=== PATIENT | male | born 1960 | race Caucasian/White ===

== ENCOUNTER → 2016-07-10 | Outpatient (CLI) | payer OTHER ==
[~2016-07-10] MED LIST: ADVIN50/60 INH; CLC100 PO; DOCU-94 PO; LISI-789 PO; NRN300 PO; OXYC-57 PO; SIMV40TA2 PO; SPRIN/30 INH; VNTHFA/IN INH
[2016-07-10 15:37] LABS: BASO % 0.3 %; BASO ABS # 0.02 K/uL (0-0.2); COMPLETE YES; EOS % 1.6 %; HEMATOCRIT 43.9 % (42-52); IG% 0.1 %; LYMPH ABS # 2.02 K/uL (1.2-3.4); MEAN CELL VOLUME 88.3 fL (80-100); MEAN CORPUSCULAR HEMOGLOBIN 30.8 pg (25-34); MEAN CORPUSCULAR HGB CONC 34.9 g/dl (32-36); MEAN PLATELET VOLUME 9.8 fL (7.4-10.4); MONO % 11.8 %; NEUT % 57.2 %; PLATELET COUNT 227 K/uL (130-400); RED BLOOD COUNT 4.97 M/uL (4.7-6.1); WHITE BLOOD COUNT 6.97 K/uL (4.8-10.8)
[2016-07-10 16:08] LABS: BLOOD UREA NITROGEN 13 mg/dl (7-18); BUN/CREATININE RATIO 10.4 (10-20); CALCIUM 8.8 mg/dl (8.5-10.1); CARBON DIOXIDE 27 mmol/L (21-32); CHLORIDE 104 mmol/L (98-107); GLUCOSE 87 mg/dl (70-99); POTASSIUM 3.9 mmol/L (3.5-5.1); SODIUM 140 mmol/L (136-145)
== END | disposition home or self-care (01) ==
LOC: C.LAB 14:22
PROVIDERS: ATTEND Surgery
DX: R91.1 Solitary pulmonary nodule (principal); C34.90 Malignant neoplasm of unspecified part of unspecified bronchus or lung

== ENCOUNTER 2016-07-18 09:30 | Inpatient (IN) | payer OTHER ==
[2016-07-17 08:43] VITALS: BMI 24.0
[2016-07-18] VITALS (11 sets, daily range): BP systolic 96–125; BP diastolic 59–79; PULSE 57–84; TEMP 35.5–36.7; O2SAT 95–100; Ht 175.3 cm; Wt 76.4 kg
[~2016-07-18] VITALS: Ht 175.3 cm; Wt 76.4 kg
[~2016-07-18 09:30] MED LIST changes: -CLC100 PO; -DOCU-94 PO; +FENTANYL CITRATE INJ 50 MCG/1 ML 2 ML VIAL ONE; +LACTATED RINGER'S 1000ML 1,000 ML IV SCH; +LIDOCAINE HCL 2% 2 ML VIAL (20MG/ML) ONE; +MIDAZOLAM HCL 1 MG/ML 2ML VIAL ONE; -NRN300 PO; +ONDANSETRON INJ 2 MG/ML 2 ML VIAL ONE; -OXYC-57 PO; +PROPOFOL IV EMULSION 10 MG/ML 20 ML VIAL IV ONE; +ROCURONIUM BROMIDE 10 MG/ML 5 ML VIAL ONE
--- NOTE | 2016-07-18 10:58 | History & Physical Bridge Note ---
H&P Re-Evaluation Bridge Note: I have examined the patient, reviewed the History & Physical and in the interval since the performance of the History & Physical I have noted the following changes of clinical significance: No changes noted
[2016-07-18] MEDS ORDERED: BUPIVACAINE LIPOSOME 1/3% 266 MG/20 ML VIAL INFIL ONE (11:28)
[2016-07-18] MEDS ORDERED: FENTANYL CITRATE INJ 50 MCG/1 ML 2 ML VIAL ONE (12:26)
[2016-07-18] MEDS ORDERED: MIX: 266 MG EXPAREL + 40 ML INJ SALINE INJ ONE (12:41)
[2016-07-18] MEDS ORDERED: GLYCOPYRROLATE INJ 0.2 MG/ML VIAL ONE (12:44)
[2016-07-18] MEDS ORDERED: DEXAMETHASONE SOD INJ 4 MG/ML VIAL ONE (12:44)
[2016-07-18] MEDS ORDERED: NEOSTIGMINE METHYLSULFATE 5 MG/5 ML SYR ONE (12:44)
[2016-07-18] MEDS ORDERED: ROCURONIUM BROMIDE 10 MG/ML 5 ML VIAL ONE (12:59)
[2016-07-18] MEDS ORDERED: PROPOFOL IV EMULSION 10 MG/ML 20 ML VIAL IV ONE (12:59)
[2016-07-18] MEDS ORDERED: EpHEDrine SULFATE INJ 50 MG/ML AMP IV PRN (13:15)
[2016-07-18] MEDS ORDERED: ONDANSETRON INJ 2 MG/ML 2 ML VIAL IV PRN (13:15)
[2016-07-18] MEDS ORDERED: ATROPINE SULFATE 0.1 MG/ML 5ML SYR IV PRN (13:15)
[2016-07-18] MEDS ORDERED: ALBUTEROL HFA 8 GM INHALER INH PRN (15:00)
[2016-07-18] MEDS ORDERED: MIDAZOLAM HCL 1 MG/ML 2ML VIAL ONE (15:08)
[2016-07-18] MEDS ORDERED: NURSING VERBAL MED ORDER ONE ×2 (15:15)
--- NOTE | 2016-07-18 15:21 | DIAGNOSTIC IMAGING REPORT ---
CHEST ONE VIEW PORTABLE CLINICAL HISTORY: Postop left upper lobectomy COMPARISON STUDY: Outside CT scan dated 06/27/2016 FINDINGS: Postsurgical changes are present on the left. There is a left-sided chest tube present. There is mild left-sided volume loss. There is no evidence of pneumothorax. There is a small amount of subcutaneous tissues emphysema on the left. There is mild right lung interstitial prominence. There is no lobar consolidation on the right. IMPRESSION: Postsurgical changes on the left. No evidence of pneumothorax. Electronically signed by: Yosvany Pedroza M.D. 07/18/2016 3:19 PM Dictated Date/Time: 07/18/2016 3:18 PM
[2016-07-18] MEDS: FENTANYL CITRATE INJ 50 MCG/1 ML 2 ML VIAL IV PRN ×2 (15:35→15:40)
[2016-07-18 15:41] LABS: CREATININE 1.1 mg/dl (0.60-1.40)
--- NOTE | 2016-07-18 15:53 | OPERATIVE REPORT ---
DATE OF OPERATION: 07/18/2016 PREOPERATIVE DIAGNOSIS: Hypermetabolic mass, left upper lobe. POSTOPERATIVE DIAGNOSIS: Nonsmall cell lung carcinoma, left upper lobe. PROCEDURE: 1. Left thoracoscopy with wedge resection. 2. Thoracoscopic left upper lobectomy. 3. Mediastinal lymphadenectomy. SURGEON: Dr. Pacheco. STUDENT SUPPORT ADVISOR: Cliff Crabtree PA-C. ANESTHESIA: General anesthesia with endotracheal intubation with double lumen tube. SPECIFICS OF THE PROCEDURE: Tip Gordon is a very nice 56-year-old male who is a patient of Dr. Rigo Cox from [facility] who referred the patient to me with a small mass which was hypermetabolic in his left upper lobe near the fissure. I thought we would be able to identify this without too much difficulty and as the rest of his studies showed him to be an operative candidate brought him to the operating room on 07/18/2016. He had a left thoracoscopy and I easily found the mass and wedged it out with Endo-AMADA staplers. I then dissected out this hilum and dissected out some lymph nodes while waiting for the frozen section. This came back as positive, we went ahead and finished the lobectomy. I also did a lymphadenectomy. He tolerated the procedure quite well. He was awakened and extubated in the room. OPERATION AND FINDINGS: PROCEDURE: The patient brought to the operating room and laid in supine position. General anesthesia was induced and endotracheal intubation was performed. The patient was placed in right lateral decubitus position, his left chest prepped, draped in usual sterile fashion. After appropriate timeout had been given and antibiotics administered a small incision was made just 1 interspace below the tip of the scapula and a few centimeters anterior. This was initially with a 5 mm Veress needle after CO2 had been infused. I then inserted a 5 mm trocar with a 5 mm scope and could see that there were no adhesions. We had nearly complete fissures. I then placed another 10 mm port anteriorly at about the seventh interspace and then more superiorly about the fourth interspace. I converted the 5 mm port to a 10 mm port for our scope. I was able to grasp this mass, I was able to identify and palpate. It was confined to the left upper lobe. Using Endo-AMADA stapler I fired across with several of these and delivered this off the field to an Endobag. Frozen section was then requested. While waiting for this I freed up the inferior pulmonary ligament and delivered off the levels 8 and level 9 nodes and then identified the inferior pulmonary vein. I then divided the pleura lateral to the phrenic nerve. Care taken to avoid injury to this nerve. I easily the superior pulmonary vein from the inferior pulmonary vein and then the superior pulmonary vein from the artery and the bronchus. Frozen section came back as a non-small cell lung carcinoma. It appeared to be an adenocarcinoma. I then placed a vessel loop around the superior pulmonary vein and retracting upward fried an Endo-AMADA stapler. I then dissected out the artery superiorly and took the first branch with an Endo-AMADA stapler and then this more. I then went into the fissure which was almost complete and divided this with an Endo-AMADA stapler anteriorly and used the Harmonic scalpel more posteriorly so I completed almost the entire fissure. I was then able to go around the bronchus without too much difficulty and placed an Endo-AMADA stapler across this and fired it. By pulling up it could be seen that there were 3 more branches including the lingular branch and fired Endo-AMADA stapler across all of these and placed this in an Endobag and removed this from the superior incision. It should be noted that I used CO2 insufflation to begin and to dissect out the pleura; however, when the diagnosis came back, I converted this to a regular thoracoscopy without CO2 insufflation and enlarged the fourth interspace incision to about 4 cm. I then used 266 mg of Exparel mixed in 60 mL total fluid and did an endothoracic block from the 2nd rib to the 11th rib. These intercostal blocks were done without difficulty without bleeding. Then attention was then turned towards the lymph nodes. As stated I dissected out level 8 and 9, also dissected out level 5, 6, 10 and 11 and 12. I dissected out the bronchus; however got into some bleeding and I elected not to go after the subcarinal node as this was not hypermetabolic on the PET and it was difficult to get to. Bronchial margins came back negative on frozen. A 24-Croatian chest tube was placed in the anterior incision and directed towards the apex, sutured in place with heavy silk suture. 0 Vicryl was used to reapproximate the muscle layers of all the incisions and then 3-0 antimicrobial impregnated Vicryl was used in a running subcuticular fashion to approximate the wound edges. He tolerated it well and was extubated in the room. Blood loss was negligible. I attest to the content of the Intraoperative Record and any orders documented therein. Any exceptio ns are noted below.
[2016-07-18] MEDS ORDERED: ALBUT/IPRATROP 3MG/0.5MG NEB 3 ML VIAL INH ONE (16:00)
--- NOTE | 2016-07-18 16:26 | Anesthesiology Progress Note ---
Anesthesia Post Op Note Date & Time Jul 18, 2016 at 16:23 Vital Signs Pain Intensity: 2 Vital Signs Past 12 Hours Date Time Temp Pulse Resp B/P Pulse Ox O2 Delivery O2 Flow Rate FiO2 07/18/16 16:10 36.3 74 16 104/62 98 Nasal Cannula 3 07/18/16 16:00 36.3 77 16 106/58 100 Nasal Cannula 3 07/18/16 15:50 73 16 115/73 100 Mask 10 07/18/16 15:40 71 22 127/73 100 Mask 10 07/18/16 15:30 69 22 110/64 100 Mask 10 07/18/16 15:20 77 22 99/74 98 Mask 10 07/18/16 15:10 70 22 111/76 100 Mask 10 07/18/16 15:06 36.0 78 20 104/66 100 Mask 10 07/18/16 09:52 36.4 68 18 125/79 95 Room Air Notes Mental Status: alert / awake / arousable, participated in evaluation Pt Amnestic to Procedure: Yes Nausea / Vomiting: adequately controlled Pain: adequately controlled Airway Patency, RR, SpO2: stable & adequate BP & HR: stable & adequate Hydration State: stable & adequate Anesthetic Complications: no major complications apparent patient complained of some chest pain and dyspnea on arrival to [facility]. did not appear to be cardiac in nature and the patient had scattered expiratory weezing. Nevertheless a 12 lead ecg was ordered along with papa. His weezing improved and he was holding excellent saturation on nasal cannula. His chest pain also impoved with treatment and aside from PVCs, his ECG was unchanged from preop. At this time he seems stable for a monitored bed on the floor.
[2016-07-18] MEDS: MoRPHine SULFATE 2 MG/ML CARP IV PRN ×3 (17:00→20:02)
[2016-07-18] MEDS: CEFAZOLIN IV 2,000 MG in DEXTROSE 5% 50ML 100 ML IV SCH (18:00)
[2016-07-18] MEDS: D5W AND 1/2NSS 1,000 ML IV SCH (18:01)
[2016-07-18] MEDS ORDERED: PNEUMOCOCCAL POLYSACCHARIDES 25 MCG/0.5 ML VIAL/SYR IM. ONE (20:30)
[2016-07-18] MEDS ORDERED: PNEUMOCOCCAL ADMINISTRATION CHARGE ONE (20:30)
[2016-07-18] MEDS: SIMVASTATIN 40 MG TAB PO SCH (21:01)
[2016-07-18] MEDS: DOCUSATE SODIUM 100 MG CAP PO SCH (21:01)
[2016-07-18] MEDS: METOCLOPRAMIDE HCL INJ 5 MG/ML 2 ML VIAL IV. SCH (21:54)
[2016-07-18] MEDS: KETOROLAC TROMETHAMINE 15 MG/ML VIAL IV. SCH (21:55)
[2016-07-18] MEDS: ACETAMINOPHEN IV 1,000 MG in EMPTY BAG 0 ML IV SCH (21:56)
[2016-07-19] VITALS (11 sets, daily range): BP systolic 103–128; BP diastolic 64–79; PULSE 70–96; TEMP 36.3–37.1; O2SAT 91–98
[2016-07-19] MEDS: CEFAZOLIN IV 2,000 MG in DEXTROSE 5% 50ML 100 ML IV SCH (02:15)
[2016-07-19] MEDS: D5W AND 1/2NSS 1,000 ML IV SCH (03:50)
[2016-07-19] MEDS: METOCLOPRAMIDE HCL INJ 5 MG/ML 2 ML VIAL IV. SCH ×2 (05:56→13:15)
[2016-07-19] MEDS: ACETAMINOPHEN IV 1,000 MG in EMPTY BAG 0 ML IV SCH ×3 (05:56→22:07)
[2016-07-19] MEDS: KETOROLAC TROMETHAMINE 15 MG/ML VIAL IV. SCH ×3 (05:56→22:07)
[2016-07-19 06:43] LABS: BASO % 0.1 %; BASO ABS # 0.01 K/uL (0-0.2); COMPLETE YES; EOS % 0.2 %; HEMATOCRIT 38.4 % (42-52); IG% 0.2 %; LYMPH % 17.3 %; MEAN CELL VOLUME 87.3 fL (80-100); MEAN CORPUSCULAR HEMOGLOBIN 30.5 pg (25-34); MEAN CORPUSCULAR HGB CONC 34.9 g/dl (32-36); MEAN PLATELET VOLUME 9.4 fL (7.4-10.4); MONO % 11.7 %; NEUT % 70.5 %; PLATELET COUNT 174 K/uL (130-400); WHITE BLOOD COUNT 10.43 K/uL (4.8-10.8)
[2016-07-19 07:14] LABS: BUN/CREATININE RATIO 14.5 (10-20); CALCIUM 7.9 mg/dl (8.5-10.1); CREATININE 1.1 mg/dl (0.60-1.40); POTASSIUM 3.6 mmol/L (3.5-5.1)
[2016-07-19] MEDS: TIOTROPIUM BROMIDE 5 PUFF/90 MCG INH INH SCH (08:06)
[2016-07-19] MEDS: FLUTICASONE/SALMETEROL (ADVAIR) 500/50 INH 14 PUFF INH SCH (08:07)
[2016-07-19] MEDS: LISINOPRIL 2.5 MG TAB PO SCH (08:07)
--- NOTE | 2016-07-19 08:07 | DIAGNOSTIC IMAGING REPORT ---
CHEST ONE VIEW PORTABLE CLINICAL HISTORY: Status post left upper lobectomy COMPARISON STUDY: Chest radiograph July 18, 2016. FINDINGS: A left chest tube is in place. Extensive gas within the left chest wall and lower neck has increased. Note is made of a moderate left apical pneumothorax. This was not evident on prior exam. There is mild interstitial thickening with the left lung and mild left basilar opacity. Cardiac size is normal. IMPRESSION: Interval development of a moderate left apical pneumothorax with left chest tube in place. Increase in subcutaneous gas within left chest wall and lower neck. Electronically signed by: Ismael Castillo M.D. 07/19/2016 8:05 AM Dictated Date/Time: 07/19/2016 8:02 AM
[2016-07-19] MEDS: DOCUSATE SODIUM 100 MG CAP PO SCH ×2 (08:08→21:14)
[2016-07-19] MEDS: ENOXAPARIN 40 MG/0.4 ML SYR SQ SCH (08:11)
--- NOTE | 2016-07-19 08:11 | Anesthesiology Progress Note ---
Anesthesia Post Op Note Date & Time Jul 19, 2016 at 08:09 Vital Signs Pain Intensity: 5.0 Vital Signs Past 12 Hours Date Time Temp Pulse Resp B/P Pulse Ox O2 Delivery O2 Flow Rate FiO2 07/19/16 07:43 36.3 70 20 103/64 98 Room Air 07/19/16 07:32 94 Room Air 2.0 07/19/16 06:12 96 93 Room Air 07/19/16 03:45 36.5 73 18 110/69 97 Nasal Cannula 2.0 07/19/16 01:00 96 Nasal Cannula 2.0 07/18/16 22:45 36.7 84 18 96/59 96 Nasal Cannula 2.0 07/18/16 22:01 97 Nasal Cannula 2.0 Notes Mental Status: alert / awake / arousable, participated in evaluation Pt Amnestic to Procedure: Yes Nausea / Vomiting: adequately controlled Pain: adequately controlled Airway Patency, RR, SpO2: stable & adequate BP & HR: stable & adequate Hydration State: stable & adequate Anesthetic Complications: no major complications apparent
[2016-07-19] MEDS: MoRPHine SULFATE 2 MG/ML CARP IV PRN ×2 (13:12→22:08)
--- NOTE | 2016-07-19 14:11 | DIAGNOSTIC IMAGING REPORT ---
CHEST ONE VIEW PORTABLE CLINICAL HISTORY: Increased shortness of breath. Chest pain. COMPARISON STUDY: Chest radiograph July 19, 2016 at 7:11 AM. FINDINGS: A left chest tube remains in place. There is gas within left chest wall and lower neck. A moderate left apical pneumothorax is similar to prior exam. Mild left lower lung opacity persists. IMPRESSION: 1. Moderate-sized left pneumothorax, similar in size to prior exam. Left chest tube in place. 2. No significant change in gas within the left chest wall and left lower neck. 3. Persistent hazy left lower lung opacity which is unchanged. Electronically signed by: Ismael Castillo M.D. 07/19/2016 2:09 PM Dictated Date/Time: 07/19/2016 2:07 PM
--- NOTE | 2016-07-19 19:08 | SURGERY PROGRESS NOTE ---
DATE: 07/19/2016 Mr. Gordon is complaining of pain in his left chest as expected. However, he has done very well on room air. Saturations are in the mid-90s. He has been ambulating in the hallway. He is voiding well. He did have trouble with urinary retention last night, but that has resolved. He drained some serous fluid. He has a pneumothorax on the left. He really has an intermittent air leak and my feeling is the left chest tube is not working as well as it should, although I think his pneumothorax is better and we will check a film in the morning on suction. I do not see the need to change the tube currently. He really did not have much of an air leak at the time of the closure of his chest in the OR. At any rate, I think he looks quite good. We will check a chest x-ray in the morning. SEVERO
[2016-07-19] MEDS: SIMVASTATIN 40 MG TAB PO SCH (21:14)
[2016-07-20] VITALS (7 sets, daily range): BP systolic 117–135; BP diastolic 75–87; PULSE 72–93; TEMP 36.5–36.8; O2SAT 90–94
[2016-07-20] MEDS: KETOROLAC TROMETHAMINE 15 MG/ML VIAL IV. SCH ×2 (06:27→14:40)
[2016-07-20] MEDS: ACETAMINOPHEN IV 1,000 MG in EMPTY BAG 0 ML IV SCH ×3 (06:27→22:00)
--- NOTE | 2016-07-20 07:22 | DIAGNOSTIC IMAGING REPORT ---
CHEST ONE VIEW PORTABLE HISTORY: s/p lung resection COMPARISON: Chest 07/19/2016. FINDINGS: Moderate left pneumothorax is unchanged in size. This demonstrates a maximal pleural gap of 5.4 cm. Left-sided chest tube remains unchanged in position. Left hilar density and interstitial thickening within the residual left lung is stable. The heart is normal in size. There is left chest wall subcutaneous emphysema which is also unchanged. No midline shift. IMPRESSION: Overall, no significant change compared to the prior study. The left chest tube is in place with a moderate size left pneumothorax persists. Electronically signed by: Jeff Adams M.D. 07/20/2016 7:20 AM Dictated Date/Time: 07/20/2016 7:18 AM
[2016-07-20] MEDS: MoRPHine SULFATE 2 MG/ML CARP IV PRN ×3 (07:36→15:59)
[2016-07-20] MEDS: FLUTICASONE/SALMETEROL (ADVAIR) 500/50 INH 14 PUFF INH SCH (09:04)
[2016-07-20] MEDS: DOCUSATE SODIUM 100 MG CAP PO SCH ×2 (09:05→20:34)
[2016-07-20] MEDS: TIOTROPIUM BROMIDE 5 PUFF/90 MCG INH INH SCH (09:05)
[2016-07-20] MEDS: LISINOPRIL 2.5 MG TAB PO SCH (09:08)
[2016-07-20] MEDS: ENOXAPARIN 40 MG/0.4 ML SYR SQ SCH (09:09)
--- NOTE | 2016-07-20 09:50 | DIAGNOSTIC IMAGING REPORT ---
CHEST ONE VIEW PORTABLE CLINICAL HISTORY: Pneumothorax. COMPARISON STUDY: Chest radiograph July 20, 2016 7:12 AM FINDINGS: Gas within the left chest wall AND left neck is noted. A left chest tube is in place. A moderate to large left apical pneumothorax has mildly increased in size since prior exam. Pleural separation is now 6.7 cm. It previously measured 5.4 cm. IMPRESSION: Mild increase in size of a moderate to large left apical pneumothorax. Left chest tube in place Electronically signed by: Ismael Castillo M.D. 07/20/2016 9:48 AM Dictated Date/Time: 07/20/2016 9:44 AM
[2016-07-20] MEDS ORDERED: NURSING VERBAL MED ORDER ONE ×2 (13:15→14:00)
[2016-07-20] MEDS ORDERED: ALUMINUM/MAGNESIUM SUSP 30 ML UDC ONE (13:15)
[2016-07-20] MEDS ORDERED: LIDOCAINE HCL 1% 20 ML VIAL ONE (13:57)
--- NOTE | 2016-07-20 14:48 | DIAGNOSTIC IMAGING REPORT ---
CHEST ONE VIEW PORTABLE CLINICAL HISTORY: pneumothorax COMPARISON STUDY: 07/20/2016 FINDINGS: The heart is mildly enlarged. There is subcutaneous emphysema on the left. There is been interval insertion of a second left-sided chest tube. A left apical pneumothorax is suspected although it is difficult to visualize the actual pleural edge. There is also an abnormal lucency at the left medial lung base, suspicious for a basilar component of the pneumothorax Increased markings the left lung base are likely atelectatic.[ IMPRESSION: Interval insertion of a second left-sided chest tube. There is a lucency at the left apex as well as at the left medial lung base. A residual pneumothorax is suspected although a discrete pleural edge is difficult to visualize. Electronically signed by: Yosvany Pedroza M.D. 07/20/2016 2:46 PM Dictated Date/Time: 07/20/2016 2:43 PM
--- NOTE | 2016-07-20 14:49 | DIAGNOSTIC IMAGING REPORT ---
CHEST ONE VIEW PORTABLE HISTORY: chest tube adjustment COMPARISON: Chest 07/20/2016. FINDINGS: There are 2 left-sided chest tubes. The basilar chest tube is unchanged in position. The left upper chest tube has been pulled back with the tip terminating at the left lung apex. Small left apical pneumothorax with a pleural gap of 12 mm. Left chest wall subcutaneous emphysema persists. There is left basilar interstitial thickening. Moderate to severe emphysema. The heart is stable in size. The right lung remains clear. IMPRESSION: 1. The upper left chest tube has been pulled back with the tip residing within the left lung apex. The left lower chest tube remains unchanged in position. 2. Small left apical pneumothorax. Electronically signed by: Jeff Adams M.D. 07/20/2016 2:48 PM Dictated Date/Time: 07/20/2016 2:45 PM
--- NOTE | 2016-07-20 14:50 | SURGERY PROGRESS NOTE ---
DATE: 07/20/2016 DATE: 07/20/2016. Mr. Gordon is 48 hours status post thorascopic left upper lobectomy for an apparent early stage nonsmall cell lung carcinoma. I am surprised to see that he had a pneumothorax. He really did not have much of an air leak in the surgery. I think there is a problem with his chest tube. I pulled it back today several centimeters. His pneumothorax is even worse. It is interesting that the patient only has an intermittent air leak. For this reason, I elected to put another chest tube in place. I am going to insert a 16-Mohawk anterior chest tube. I have discussed this with the patient and he is in agreement. Our pathology report is still pending.
--- NOTE | 2016-07-20 15:37 | OPERATIVE REPORT ---
DATE OF OPERATION: 07/20/2016 PROCEDURE NOTE PROCEDURE: Insertion of left anterior 16-Tajik chest tube. SURGEON: Dr. Pacheco. VOCATIONAL NURSING INSTRUCTOR: Cliff Crabtree PA-C. ANESTHESIA: Local. SPECIFICS OF PROCEDURE: With the patient at about a 30 degree angle sitting up, his left chest was prepped and draped in the usual sterile fashion anteriorly. Using a 25 gauge needle 1% Xylocaine, I anesthetized the skin and subcutaneous tissues. A longer needle was used to anesthetize the deeper subcutaneous tissues and muscle. A long needle was then used to go over the rib above and enter the pleural cavity without difficulty. I was anesthetizing the periosteum as I went over it as well as the pleura. We got free flowing air. A guidewire was inserted and needle removed. The insertion site was enlarged to about 6-8 mm and then an introducer was slid over the guidewire to enlarge the insertion site and removed. The 16-Tajik chest tube with a trocar was then inserted over the guidewire without difficulty to about 16 cm and the inner cannula and guidewire were removed. Two separate 3-0 silk sutures used to anchor this to the patient's skin. An air leak was not large, but it was much more consistent than his other chest tube. We will check another chest x-ray now. Sterile antimicrobial dressings were placed. He tolerated it well. I attest to the content of the Intraoperative Record and any orders documented therein. Any exceptions are noted below. SEVERO
[2016-07-20] MEDS: OXYCODONE/ACETAMINOPHEN 5-325 TAB PO PRN ×2 (17:23→20:38)
[2016-07-20] MEDS: SIMVASTATIN 40 MG TAB PO SCH (20:34)
[2016-07-20] MEDS: ALUMINUM/MAGNESIUM/SIMETH (MAALOX MAX) 30 ML UDC PO PRN (20:40)
[2016-07-21] VITALS (7 sets, daily range): BP systolic 110–122; BP diastolic 70–78; PULSE 68–84; TEMP 36.6–36.8; O2SAT 92–94
[2016-07-21] MEDS: OXYCODONE/ACETAMINOPHEN 5-325 TAB PO PRN ×4 (01:06→23:47)
[2016-07-21] MEDS: ACETAMINOPHEN IV 1,000 MG in EMPTY BAG 0 ML IV SCH (05:31)
[2016-07-21] MEDS ORDERED: NURSING VERBAL MED ORDER ONE (07:30)
--- NOTE | 2016-07-21 07:57 | DIAGNOSTIC IMAGING REPORT ---
CHEST ONE VIEW PORTABLE CLINICAL HISTORY: pneumothorax COMPARISON STUDY: 07/20/2016 FINDINGS: Postsurgical changes are present on the left. There is left-sided volume loss. There are 2 left-sided chest tubes. There is a left apical pneumothorax the pleural separation of 23 mm. There is left-sided subcutaneous emphysema. There are minor left basilar atelectatic changes. The right lung appears generally clear.[ IMPRESSION: Slight increase in the size of the left apical pneumothorax which has a pleural separation of 23 mm. Electronically signed by: Yosvany Pedroza M.D. 07/21/2016 7:55 AM Dictated Date/Time: 07/21/2016 7:54 AM
[2016-07-21] MEDS: MoRPHine SULFATE 2 MG/ML CARP IV PRN (08:14)
[2016-07-21] MEDS: ALUMINUM/MAGNESIUM/SIMETH (MAALOX MAX) 30 ML UDC PO PRN (08:41)
[2016-07-21] MEDS: FLUTICASONE/SALMETEROL (ADVAIR) 500/50 INH 14 PUFF INH SCH (08:42)
[2016-07-21] MEDS: LISINOPRIL 2.5 MG TAB PO SCH (08:43)
[2016-07-21] MEDS: DOCUSATE SODIUM 100 MG CAP PO SCH ×2 (08:43→20:51)
[2016-07-21] MEDS: TIOTROPIUM BROMIDE 5 PUFF/90 MCG INH INH SCH (08:45)
[2016-07-21] MEDS: ENOXAPARIN 40 MG/0.4 ML SYR SQ SCH (08:47)
--- NOTE | 2016-07-21 10:24 | SURGERY PROGRESS NOTE ---
DATE: 07/21/2016 DATE: 07/21/2016. Mr. Gordon was seen today postop day 3 status post thoracoscopic left upper lobectomy for nonsmall cell lung carcinoma. I removed the inferior chest tube. I think his x-ray looks better despite the radiology interpretation. He does have a small air leak and has gotten smaller since last night. I attached the Heimlich valve to him and he was draining very little fluid. I have instructed him how important it is for him to ambulate and to use his spirometer. He is on room air. He is eating well. Overall, I have been happy with his progress. I feel he is stable from a surgery standpoint, I believe that we will be able to get him out of the hospital soon. I prefer not to send him home with a chest tube; however, that is an option with the Heimlich valve in place. SEVERO
[2016-07-21] MEDS: ONDANSETRON INJ 2 MG/ML 2 ML VIAL IV PRN (12:58)
[2016-07-21] MEDS: SIMVASTATIN 40 MG TAB PO SCH (20:51)
[2016-07-22] MEDS: OXYCODONE/ACETAMINOPHEN 5-325 TAB PO PRN ×4 (03:25→23:58)
[2016-07-22 06:50] VITALS: BP 103/70; PULSE 71; TEMP 36.6; O2SAT 94
[2016-07-22] MEDS: TIOTROPIUM BROMIDE 5 PUFF/90 MCG INH INH SCH (08:40)
[2016-07-22] MEDS: FLUTICASONE/SALMETEROL (ADVAIR) 500/50 INH 14 PUFF INH SCH (08:40)
[2016-07-22] MEDS: DOCUSATE SODIUM 100 MG CAP PO SCH ×2 (08:41→20:33)
[2016-07-22] MEDS: ENOXAPARIN 40 MG/0.4 ML SYR SQ SCH (08:41)
[2016-07-22] MEDS: LISINOPRIL 2.5 MG TAB PO SCH (08:41)
--- NOTE | 2016-07-22 08:51 | SURGERY PROGRESS NOTE ---
DATE: 07/22/2016 Mr. Gordon was seen today on 07/22/2016. He is now 4 days status post a thoracoscopic left upper lobectomy. He had some increasing subcutaneous emphysema. He still has a persistent left apical pneumothorax; however, the chest tube is working, he does have an air leak. It is small. I believe that some the pneumothorax is caused by incomplete expansion of the lung. At any rate, I have discussed this case with Dr. Johnson, who will cover the patient today. I have also asked Dr. Varner to cover him going forward. I will be out of town until Saturday. I have explained this to the patient. Otherwise, the patient is doing well. I am going to give him MiraLax today. I want him to continue ambulating in the hallway. He is eating well. He is complaining of pain, but this is controlled with his oral narcotics.
--- NOTE | 2016-07-22 09:46 | DIAGNOSTIC IMAGING REPORT ---
SINGLE VIEW CHEST CLINICAL HISTORY: Lobectomy. Pneumothorax. FINDINGS: An AP, portable, upright chest radiograph is compared to study dated 07/21/2016. Correlation is made with chest CT dated 06/27/2016. The examination is degraded by portable technique and patient rotation. The cardiomediastinal silhouette is unremarkable. Emphysema and chronic interstitial thickening are similar to previous. There are postoperative changes from left upper lobe pulmonary resection. A left atypical chest tube is unchanged in position. A small left apical pneumothorax has modestly increased in size from yesterday. There is approximately 5 cm of apical pleural separation. Trace pleural fluid is suspected at the left lung base. The right lung appears clear. The skeletal structures are osteopenic. The bony thorax is grossly intact. Simultaneous emphysema along the left chest wall and in the left lower neck is increased from yesterday. IMPRESSION: 1. A left apical chest tube is unchanged in position. A left apical pneumothorax has modestly increased in size from yesterday. 2. Emphysema and postoperative changes from left upper lobe pulmonary resection. 3. The right lung is grossly clear. Electronically signed by: Venkat Warren M.D. 07/22/2016 9:44 AM Dictated Date/Time: 07/22/2016 9:42 AM
[2016-07-22] MEDS: ALUMINUM/MAGNESIUM/SIMETH (MAALOX MAX) 30 ML UDC PO PRN ×2 (14:12→21:34)
[2016-07-22] MEDS ORDERED: NURSING VERBAL MED ORDER ONE (14:30)
[2016-07-22] MEDS ORDERED: BISACODYL 5 MG TABEC PO PRN (15:00)
[2016-07-22 15:31] VITALS: BP 112/73; PULSE 83; TEMP 36.8; O2SAT 91
[2016-07-22 18:53] VITALS: PULSE 88; O2SAT 96
[2016-07-22] MEDS: SIMVASTATIN 40 MG TAB PO SCH (20:57)
[2016-07-22 23:10] VITALS: BP 105/74; PULSE 77; TEMP 36.5; O2SAT 91
[2016-07-23] MEDS: MoRPHine SULFATE 2 MG/ML CARP IV PRN ×2 (02:15→23:26)
[2016-07-23] MEDS: ONDANSETRON INJ 2 MG/ML 2 ML VIAL IV PRN (02:28)
[2016-07-23 07:04] VITALS: BP 109/71; PULSE 78; TEMP 36.8; O2SAT 93
[2016-07-23] MEDS: FLUTICASONE/SALMETEROL (ADVAIR) 500/50 INH 14 PUFF INH SCH (08:04)
[2016-07-23] MEDS: TIOTROPIUM BROMIDE 5 PUFF/90 MCG INH INH SCH (08:05)
[2016-07-23] MEDS: DOCUSATE SODIUM 100 MG CAP PO SCH ×2 (08:05→21:00)
[2016-07-23] MEDS: LISINOPRIL 2.5 MG TAB PO SCH (08:05)
[2016-07-23] MEDS: ENOXAPARIN 40 MG/0.4 ML SYR SQ SCH (08:06)
--- NOTE | 2016-07-23 08:20 | DIAGNOSTIC IMAGING REPORT ---
CHEST ONE VIEW PORTABLE CLINICAL HISTORY: Follow up pneumothorax. COMPARISON STUDY: Chest radiograph July 22, 2016. FINDINGS: A left apical chest tube remains in place. A small left apical pneumothorax has decreased in size. Superior pleural separation now measures 2.7 cm. Emphysema is noted. There is mild left lower lung opacity. Gas within the left chest wall and left neck is unchanged. There is no evidence of pulmonary edema. IMPRESSION: Significant interval decrease in the small left apical pneumothorax. Left apical chest tube remains in place. Electronically signed by: Ismael Castillo M.D. 07/23/2016 8:18 AM Dictated Date/Time: 07/23/2016 8:14 AM
--- NOTE | 2016-07-23 08:36 | SURGERY PROGRESS NOTE ---
DATE: 07/23/[address] Pacheco. SUBJECTIVE: Tip is status post postoperative day thorascopic left upper lobectomy with mediastinal lymphadenectomy. He has had a persistent pneumothorax. He was tried on a Heimlich valve a few days ago, but he had more increased subcutaneous emphysema. This morning Tip is resting quite comfortably. His temperature is 36.8, his pulse 78, respirations 16, blood pressure 109/71, O2 sats 93% on room air. I\T\O still slightly positive, but urine has not been measured in last 2 days. He is moving his bowels. Clinically, he has left subcutaneous emphysema, according to the patient this is pretty much unchanged in the chest wall. I asked him for a forced expiratory leak, he has minimal air leak. He is off suction, but on and off for 4 hours. I reinforced the junction between the chest tube and the pleurovac. At this time, we will get a chest x-ray and see and evaluate the status of pneumothorax. If it is stable and no further evidence of any expansion tomorrow, will probably be able to put a Heimlich valve on him and discharge him home. A decision will be made on a clinical basis following his chest x-ray. The path report at this time is still pending. SEVERO
[2016-07-23] MEDS: ALUMINUM/MAGNESIUM/SIMETH (MAALOX MAX) 30 ML UDC PO PRN ×3 (09:20→23:21)
[2016-07-23 11:22] VITALS: BP 104/71; PULSE 87; TEMP 36.8; O2SAT 91
[2016-07-23] MEDS: OXYCODONE/ACETAMINOPHEN 5-325 TAB PO PRN ×3 (12:19→21:00)
[2016-07-23 15:09] VITALS: BP 128/84; PULSE 80; TEMP 36.5; O2SAT 92
[2016-07-23 16:30] VITALS: O2SAT 92
[2016-07-23] MEDS: SIMVASTATIN 40 MG TAB PO SCH (21:01)
[2016-07-23 23:10] VITALS: BP 129/81; PULSE 71; TEMP 36.6; O2SAT 93
[2016-07-24] VITALS (9 sets, daily range): BP systolic 101–125; BP diastolic 66–80; PULSE 68–84; TEMP 36.4–37.2; O2SAT 92–98
[2016-07-24] MEDS: OXYCODONE/ACETAMINOPHEN 5-325 TAB PO PRN ×4 (03:20→20:24)
--- NOTE | 2016-07-24 07:07 | SURGERY PROGRESS NOTE ---
DATE: 07/24/2016 Tip is resting comfortably. The chest tube had been placed on 4 hours off and 4 hours on suction. When I walk in the chest tube is on suction now. There is no forced expiratory leak. I discontinued the suction and pretty much the same. The subcutaneous emphysema clinically has maintained the same status. At this point we will discontinue the suction completely, get a chest x-ray in about 3 hours to see how it evolves. If there is no significant change in the pneumothorax and no evidence of any extension of the emphysema then we may be able to put a Heimlich valve and send the patient home. The concern is that the chest tube which is in the left apical area with the extension of the subcutaneous emphysema has actually migrated almost to the subcutaneous space.
[2016-07-24] MEDS: LISINOPRIL 2.5 MG TAB PO SCH (08:27)
[2016-07-24] MEDS: FLUTICASONE/SALMETEROL (ADVAIR) 500/50 INH 14 PUFF INH SCH (08:28)
[2016-07-24] MEDS: DOCUSATE SODIUM 100 MG CAP PO SCH ×2 (08:28→20:25)
[2016-07-24] MEDS: ENOXAPARIN 40 MG/0.4 ML SYR SQ SCH (08:29)
[2016-07-24] MEDS: TIOTROPIUM BROMIDE 5 PUFF/90 MCG INH INH SCH (09:54)
--- NOTE | 2016-07-24 10:12 | SURGERY PROGRESS NOTE ---
DATE: 07/24/2016 I was called by the nurse approximately an hour after we had discontinued suction on the chest tube on Mr. Gordon. She was quite concerned that his left neck was getting more prominent with subcutaneous emphysema. The patient was not having any real issue. She was quite concerned. I was in the OR and I told her to put the chest tube back on suction. Of note, the chest tube had been only off suction for about an hour, and prior to that he was on a schedule by having a clamped every 4 hours. I went back and saw the patient about 9:00 where was resting comfortably. I do not see any real extension of the subcutaneous emphysema, but the patient states that it was a little bit more prominent on the left side of the neck. I did put the chest tube back on suction at this time, although there was no forced expiratory leak. We are waiting to get a chest x-ray. I suspect that probably the chest tube may have come out of the chest cavity and it is in the subcutaneous tissue, and depending how significant the pneumothorax is, we may leave things on as it is, or may have to reposition with another chest tube deeper in the chest.
--- NOTE | 2016-07-24 10:29 | DIAGNOSTIC IMAGING REPORT ---
CHEST ONE VIEW PORTABLE CLINICAL HISTORY: Left lung nodule. Postop study. COMPARISON STUDY: 07/23/2016 FINDINGS: Postsurgical changes are present on the left. There is a chest tube visualized within the left upper pleural space. There is extensive subcutaneous emphysema. There is a left apical pneumothorax the pleural separation of 2 cm. A triangle opacity at the left base likely represents focal atelectasis.[ IMPRESSION: 1. Interval decrease in the size of left apical pneumothorax which currently has a pleural separation of 2 cm 2. No change the position left-sided chest tube 3. Extensive subcutaneous emphysema 4. Triangular opacity at the left lung base, likely atelectatic Electronically signed by: Yosvany Pedroza M.D. 07/24/2016 10:27 AM Dictated Date/Time: 07/24/2016 10:25 AM
[2016-07-24] MEDS: ALUMINUM/MAGNESIUM/SIMETH (MAALOX MAX) 30 ML UDC PO PRN ×2 (16:01→20:18)
--- NOTE | 2016-07-24 18:30 | DIAGNOSTIC IMAGING REPORT ---
SINGLE VIEW CHEST CLINICAL HISTORY: Lobectomy. Pneumothorax. FINDINGS: An AP, portable, upright chest radiograph is compared to study performed earlier the same day 07/24/2016. Correlation is made with chest CT dated 06/27/2016. The examination is degraded by portable technique and patient rotation. The cardiomediastinal silhouette is unremarkable. Emphysema and chronic interstitial thickening are similar to previous. There are postoperative changes from left upper lobe pulmonary resection. A left apical chest tube is unchanged in position. A small left apical pneumothorax is unchanged from earlier today. There is approximately 2.3 cm of pleural separation. A small amount of pleural fluid is again noted at the left lung base with left basilar opacities. The right lung appears clear. The skeletal structures are osteopenic. The bony thorax is grossly intact. Subcutaneous emphysema along the left chest wall and in the left lower neck bilaterally is unchanged from earlier today. IMPRESSION: 1. A left apical chest tube is unchanged in position, and a small left apical pneumothorax is unchanged from earlier today. 2. Significant subcutaneous emphysema in the lower neck bilaterally and along the left chest wall is similar to previous. 3. Emphysema and postoperative changes from left upper lobe pulmonary resection. 4. Pleural fluid the left lung base and left basilar opacities are unchanged. Electronically signed by: Venkat Warren M.D. 07/24/2016 6:28 PM Dictated Date/Time: 07/24/2016 6:26 PM
--- NOTE | 2016-07-24 18:45 | DIAGNOSTIC IMAGING REPORT ---
SOFT TISSUES NECK 2 VIEWS CLINICAL HISTORY: Crepitus. FINDINGS: AP and lateral portable views of the soft tissues the neck are correlated with chest x-ray performed concurrently and 07/24/2016. There is extensive subcutaneous emphysema identified throughout the neck bilaterally, likely related to the left apical chest tube. This degrades assessment of the pharynx. The airway appears widely patent. The pharyngeal soft tissues are normal as visualized. The epiglottic shadow is not well seen. No prevertebral soft tissue edema is identified. The bony structures are grossly intact. A small left apical pneumothorax and a left apical chest tube are noted. Emphysema is observed. IMPRESSION: 1. Extensive subcutaneous emphysema is present throughout the neck. 2. A small left apical pneumothorax is identified. Electronically signed by: Venkat Warren M.D. 07/24/2016 6:44 PM Dictated Date/Time: 07/24/2016 6:42 PM
[2016-07-24] MEDS: SIMVASTATIN 40 MG TAB PO SCH (20:25)
[2016-07-25] MEDS: OXYCODONE/ACETAMINOPHEN 5-325 TAB PO PRN ×4 (00:07→18:13)
[2016-07-25 07:34] VITALS: BP 100/69; PULSE 68; TEMP 36.6; O2SAT 98
[2016-07-25] MEDS: LISINOPRIL 2.5 MG TAB PO SCH (08:10)
[2016-07-25] MEDS: ENOXAPARIN 40 MG/0.4 ML SYR SQ SCH (08:13)
[2016-07-25] MEDS: FLUTICASONE/SALMETEROL (ADVAIR) 500/50 INH 14 PUFF INH SCH (08:13)
[2016-07-25] MEDS: TIOTROPIUM BROMIDE 5 PUFF/90 MCG INH INH SCH (08:13)
[2016-07-25] MEDS: DOCUSATE SODIUM 100 MG CAP PO SCH ×2 (08:13→20:14)
--- NOTE | 2016-07-25 08:33 | SURGERY PROGRESS NOTE ---
DATE: 07/25/2016 Tip is resting very comfortably this morning. He said he noticed less swelling of his neck and upper chest. He has no respiratory problems or issues except he does have a productive cough. His last vitals showed a temperature of 36.5, pulse 68, respirations 20, blood pressure 102/66, O2 sats 95% on 2 liters. I\T\O is balance negative. The chest tube has fluctuance on the fluid in the tubing itself. It is on suction. There is no forced expiratory leak. The chest x-ray is pending at this time. Yesterday afternoon, I had an extensive talk with the family members, 2 of them are female and a male and brought them up to date on the issues. They were a little concerned that nothing was being done to get this fixed right away and I explained to them that sometimes it takes some time and we can make things worse by being too aggressive and will see what nature takes its course as far as changing the avenue of therapy. By the time we were finished, they were comfortable with our decision. This morning's chest x-ray is pending, but as I see it now he had an x-ray done yesterday afternoon about 6:[address] Story, I am not sure of the etiology of that, but it seemed like that he may have been concerned about worsening subcutaneous emphysema that showed basically no change in the left apical pneumothorax and the subQ emphysema was pretty much unchanged.
--- NOTE | 2016-07-25 09:25 | DIAGNOSTIC IMAGING REPORT ---
SINGLE VIEW CHEST CLINICAL HISTORY: Lobectomy. Follow-up pneumothorax. FINDINGS: An AP, portable, upright chest radiograph is compared to studies dated 07/24/2016. Correlation is made with chest CT dated 06/27/2016. The examination is degraded by portable technique and patient rotation. The cardiomediastinal silhouette is unremarkable. Emphysema and chronic interstitial thickening are similar to previous. There are postoperative changes from left upper lobe pulmonary resection. A left apical chest tube is unchanged in position. A small left apical pneumothorax has slightly increased in size from yesterday. There is approximately 2.9 cm of apical pleural separation. A small amount of pleural fluid is again noted at the left lung base with left basilar opacities. The right lung appears clear. The skeletal structures are osteopenic. The bony thorax is grossly intact. Subcutaneous emphysema along the left chest wall and in the left lower neck bilaterally is unchanged from earlier today. IMPRESSION: 1. A left apical chest tube is unchanged in position, and a small left apical pneumothorax has slightly increased in size from yesterday. 2. Significant subcutaneous emphysema in the lower neck bilaterally and along the left chest wall is similar to previous. 3. Emphysema and postoperative changes from left upper lobe pulmonary resection. 4. Pleural fluid the left lung base and left basilar opacities are unchanged. Electronically signed by: Venkat Warren M.D. 07/25/2016 9:23 AM Dictated Date/Time: 07/25/2016 9:21 AM
[2016-07-25 15:04] VITALS: BP 104/70; PULSE 77; TEMP 36.6; O2SAT 95
[2016-07-25] MEDS: MoRPHine SULFATE 2 MG/ML CARP IV PRN ×2 (15:29→17:06)
[2016-07-25] MEDS: SIMVASTATIN 40 MG TAB PO SCH (20:14)
[2016-07-25 23:15] VITALS: BP 123/78; PULSE 65; TEMP 36.9; O2SAT 92
[2016-07-26] MEDS: MoRPHine SULFATE 2 MG/ML CARP IV PRN ×2 (04:53→15:57)
--- NOTE | 2016-07-26 06:05 | SURGERY PROGRESS NOTE ---
DATE: 07/26/2016 Tip is pretty much the same. He states that his neck area feels a lot better. It does not seem like it is noticeable. His subcutaneous emphysema on exam is pretty much unchanged. His chest tube has no evidence of any forced expiratory leak or any leak on suction. Last evening, the patient asked to speak to a doctor regarding an acute onset of some fluid drainage from the previous chest tube site. By the time I called back, apparently, the patient had talked with the nurse and they had discussed this with Dr. Pacheco. This morning I went over pretty much with him again that this is not unusual to drain something out of a chest tube site. I also told him that most likely Dr. Pacheco will be back tomorrow. Will get a chest x-ray today to follow up on the pneumo which he still had in apical area, I am not sure if this was related to may be a space problem from the lungs and he had some atelectasis at the base or possibly still has a small air leak. But since clinically he is not deteriorating and his vitals have noticed to be adequate with the room air saturation in the 90s, I would leave things alone at this time and see how it develops. I did mention to the patient there is a possibility that we may have to place another chest tube if either clinically or radiographically seems to be deteriorating and he is comfortable with that decision.
--- NOTE | 2016-07-26 06:56 | DIAGNOSTIC IMAGING REPORT ---
CHEST ONE VIEW PORTABLE CLINICAL HISTORY: Lobectomy. Pneumothorax. COMPARISON STUDY: 07/25/2016 FINDINGS: Postsurgical changes are present on the left. There are left basilar atelectatic changes. The left-sided chest tube remains unchanged in position. There is slight decrease in the left-sided subcutaneous emphysema. There is a left apical pneumothorax the pleural separation of 29 mm. There is no lobar consolidation[ IMPRESSION: 1. Minimal decrease in size left apical pneumothorax which currently has a pleural separation of 26 mm 2. Slight decrease in the moderately extensive subcutaneous emphysema Electronically signed by: Yosvany Pedroza M.D. 07/26/2016 6:54 AM Dictated Date/Time: 07/26/2016 6:53 AM
[2016-07-26 08:08] VITALS: O2SAT 95
[2016-07-26 09:03] VITALS: BP 110/75; PULSE 88; O2SAT 93
[2016-07-26] MEDS: TIOTROPIUM BROMIDE 5 PUFF/90 MCG INH INH SCH (09:05)
[2016-07-26] MEDS: DOCUSATE SODIUM 100 MG CAP PO SCH ×2 (09:05→20:25)
[2016-07-26] MEDS: FLUTICASONE/SALMETEROL (ADVAIR) 500/50 INH 14 PUFF INH SCH (09:06)
[2016-07-26] MEDS: LISINOPRIL 2.5 MG TAB PO SCH (09:06)
[2016-07-26] MEDS: ENOXAPARIN 40 MG/0.4 ML SYR SQ SCH (09:07)
[2016-07-26] MEDS: OXYCODONE/ACETAMINOPHEN 5-325 TAB PO PRN ×4 (09:09→23:18)
[2016-07-26] MEDS: ALUMINUM/MAGNESIUM/SIMETH (MAALOX MAX) 30 ML UDC PO PRN ×2 (13:05→19:22)
[2016-07-26 15:31] VITALS: BP 108/70; PULSE 75; TEMP 36.4; O2SAT 94
[2016-07-26] MEDS: SIMVASTATIN 40 MG TAB PO SCH (20:25)
[2016-07-26 23:33] VITALS: BP 113/76; PULSE 81; TEMP 36.6; O2SAT 96
[2016-07-27] MEDS: MoRPHine SULFATE 2 MG/ML CARP IV PRN (01:25)
[2016-07-27 07:16] VITALS: BP 91/60; PULSE 72; TEMP 36.8; O2SAT 95
[2016-07-27] MEDS: LISINOPRIL 2.5 MG TAB PO SCH (08:37)
[2016-07-27] MEDS: TIOTROPIUM BROMIDE 5 PUFF/90 MCG INH INH SCH (09:03)
[2016-07-27] MEDS: FLUTICASONE/SALMETEROL (ADVAIR) 500/50 INH 14 PUFF INH SCH (09:03)
[2016-07-27] MEDS: ENOXAPARIN 40 MG/0.4 ML SYR SQ SCH (09:03)
[2016-07-27] MEDS: DOCUSATE SODIUM 100 MG CAP PO SCH ×2 (09:03→20:59)
[2016-07-27] MEDS: OXYCODONE/ACETAMINOPHEN 5-325 TAB PO PRN ×3 (09:04→21:06)
[2016-07-27] MEDS: ALUMINUM/MAGNESIUM/SIMETH (MAALOX MAX) 30 ML UDC PO PRN ×2 (11:57→21:08)
[2016-07-27 15:54] VITALS: BP 139/82; PULSE 63; TEMP 36.4; O2SAT 97
[2016-07-27 16:30] VITALS: O2SAT 97
--- NOTE | 2016-07-27 19:44 | SURGERY PROGRESS NOTE ---
DATE: 07/27/2016 Mr. Gordon is now 9 days status post thoracoscopic left upper lobectomy and unfortunately continues to have a small air leak. Subcutaneous emphysema is improving. The incisions were inspected and he has slight separation of his working channel at about the fourth interspace. There is no surrounding erythema and very little in the way of drainage. He did drain from his left chest tube, but when I looked at his chest x-ray yesterday, he really has no pleural fluid. He has a very small apical pneumothorax, but he does have a small persistent air leak. I reviewed the pathology with Mr. Gordon. His lymph nodes were all negative. The tumor is only 1.3 cm; however, it did involve the visceral pleura making him a T2a or a stage I-B lung carcinoma. Otherwise, he looks good. He has been eating well. He is sleeping. His pain has been well-controlled. He is moving his bowels. I am going to see how he does and hopefully his air leak will settle down over the next day or two. Surprisingly, we did not really have an air leak at the time of surgery. I do not think his air leak is large enough to warrant any intervention at this point. SEVERO
[2016-07-27] MEDS: SIMVASTATIN 40 MG TAB PO SCH (20:58)
[2016-07-27 23:05] VITALS: BP 106/68; PULSE 75; TEMP 36.7; O2SAT 94
[2016-07-28] MEDS: OXYCODONE/ACETAMINOPHEN 5-325 TAB PO PRN ×3 (04:21→20:56)
[2016-07-28 07:40] VITALS: BP 107/71; PULSE 66; TEMP 36.5; O2SAT 94
[2016-07-28] MEDS: LISINOPRIL 2.5 MG TAB PO SCH (09:00)
[2016-07-28] MEDS: DOCUSATE SODIUM 100 MG CAP PO SCH ×2 (09:06→20:51)
[2016-07-28] MEDS: FLUTICASONE/SALMETEROL (ADVAIR) 500/50 INH 14 PUFF INH SCH (09:06)
[2016-07-28] MEDS: TIOTROPIUM BROMIDE 5 PUFF/90 MCG INH INH SCH (09:06)
[2016-07-28] MEDS: ENOXAPARIN 40 MG/0.4 ML SYR SQ SCH (09:08)
[2016-07-28] MEDS: PANTOprazole SOD 40 MG TAB PO SCH ×2 (09:10→20:52)
--- NOTE | 2016-07-28 10:14 | SURGERY PROGRESS NOTE ---
DATE: 07/28/2016 Heidi is seen today. He is up ambulating. He feels good. His "upset stomach" is improved. I have started him on Protonix. He is up ambulating. He is eating well. His air leak is smaller. I am quite happy with him actually. We are going to check a chest x-ray in the morning, but at this point I am encouraged by how much better he looks over the last day.
[2016-07-28 15:03] VITALS: BP 99/61; PULSE 75; TEMP 36.7; O2SAT 96
[2016-07-28 16:33] VITALS: O2SAT 97
[2016-07-28] MEDS: ALUMINUM/MAGNESIUM/SIMETH (MAALOX MAX) 30 ML UDC PO PRN (17:16)
[2016-07-28] MEDS: SIMVASTATIN 40 MG TAB PO SCH (20:51)
[2016-07-28 23:10] VITALS: BP 107/68; PULSE 59; TEMP 36.4; O2SAT 94
[2016-07-29 07:25] VITALS: BP 107/73; PULSE 66; TEMP 36.6; O2SAT 93
--- NOTE | 2016-07-29 07:38 | DIAGNOSTIC IMAGING REPORT ---
CHEST ONE VIEW PORTABLE CLINICAL HISTORY: s/p lobectomy COMPARISON STUDY: 07/26/2016 FINDINGS: The cardiac and mediastinal contours remain stable. Postsurgical changes are present on the left. There is been no change the position left-sided chest tube. There is stable subcutaneous emphysema on the left. There is a left apical pneumothorax the pleural separation of 29 mm. There is no acute parenchymal consolidation[ IMPRESSION: No change in the left-sided chest tube. 29 mm left apical pneumothorax. Subcutaneous emphysema. Electronically signed by: Yosvany Pedroza M.D. 07/29/2016 7:36 AM Dictated Date/Time: 07/29/2016 7:35 AM
[2016-07-29] MEDS: FLUTICASONE/SALMETEROL (ADVAIR) 500/50 INH 14 PUFF INH SCH (08:45)
[2016-07-29] MEDS: PANTOprazole SOD 40 MG TAB PO SCH ×2 (08:46→21:29)
[2016-07-29] MEDS: DOCUSATE SODIUM 100 MG CAP PO SCH ×2 (08:46→21:29)
[2016-07-29] MEDS: ENOXAPARIN 40 MG/0.4 ML SYR SQ SCH (08:50)
[2016-07-29] MEDS: LISINOPRIL 2.5 MG TAB PO SCH (08:53)
[2016-07-29] MEDS: TIOTROPIUM BROMIDE 5 PUFF/90 MCG INH INH SCH (09:39)
--- NOTE | 2016-07-29 13:21 | SURGERY PROGRESS NOTE ---
DATE: 07/29/2016 HISTORY OF PRESENT ILLNESS: Mr. Gordon was seen today on 07/29/2015. He is now 11 days status post a thoracoscopic left upper lobectomy for an early stage nonsmall cell lung carcinoma. He looks better. He has been moving his bowels. He has been eating. He is on room air with 94% saturations. He has been ambulating in the hallway. His chest tube has drained very little. He has some mild drainage from his chest incisions, but he has no erythema and they looked very good to me. He does have some subcutaneous emphysema and it is better. His persistent left pneumothorax apically I believe is not from a continued air leak, but from the incomplete expansion of his lung following surgery. I think this eventually should resolve. I will base the removal of his chest tube on the air leak which appears to be smaller, although still persistent.
[2016-07-29 15:18] VITALS: BP 106/70; PULSE 72; TEMP 36.7; O2SAT 94
[2016-07-29] MEDS: OXYCODONE/ACETAMINOPHEN 5-325 TAB PO PRN ×2 (20:30→23:33)
[2016-07-29] MEDS: SIMVASTATIN 40 MG TAB PO SCH (21:29)
[2016-07-29 22:53] VITALS: BP 110/72; PULSE 74; TEMP 36.7; O2SAT 98
[2016-07-30 07:25] VITALS: BP 133/73; PULSE 46; TEMP 36.3; O2SAT 96
[2016-07-30 07:57] VITALS: BP 133/78; PULSE 69; O2SAT 100
[2016-07-30 08:10] VITALS: PULSE 60
[2016-07-30] MEDS: TIOTROPIUM BROMIDE 5 PUFF/90 MCG INH INH SCH (08:33)
[2016-07-30] MEDS: FLUTICASONE/SALMETEROL (ADVAIR) 500/50 INH 14 PUFF INH SCH (08:33)
[2016-07-30] MEDS: DOCUSATE SODIUM 100 MG CAP PO SCH ×2 (08:34→20:40)
[2016-07-30] MEDS: PANTOprazole SOD 40 MG TAB PO SCH ×2 (08:34→20:41)
[2016-07-30] MEDS: LISINOPRIL 2.5 MG TAB PO SCH (08:35)
[2016-07-30] MEDS: ENOXAPARIN 40 MG/0.4 ML SYR SQ SCH (08:35)
[2016-07-30] MEDS: OXYCODONE/ACETAMINOPHEN 5-325 TAB PO PRN ×2 (08:40→20:40)
[2016-07-30 13:25] VITALS: BP 127/81; PULSE 67; TEMP 36.6; O2SAT 97
--- NOTE | 2016-07-30 13:35 | DIAGNOSTIC IMAGING REPORT ---
BILATERAL CAROTID DOPPLER STUDY HISTORY: hand numbness COMPARISON: Chest 07/27/2016. TECHNIQUE: Real-time, grayscale, and color Doppler sonography of the carotid arteries was performed. Imaging reviewed in the transverse and longitudinal planes. All measurements were calculated based on NASCET criteria. FINDINGS: Antegrade flow is seen in the bilateral vertebral arteries. The brachial pressures are hemodynamically similar. The peak systolic velocity within the right ICA is 72 cm/s. The right systolic ratio is 0.7. The patient's subcutaneous emphysema within the left neck obscures the left ICA and left ECA. The peak systolic velocity within the left common carotid artery was 103 cm/s. IMPRESSION: 1. No hemodynamically significant stenosis within the visualized carotid arteries. 2. Of note, the left ICA and ECA were obscured by the patient's left neck subcutaneous emphysema. Electronically signed by: Jeff Adams M.D. 07/30/2016 1:33 PM Dictated Date/Time: 07/30/2016 1:31 PM
[2016-07-30 15:27] VITALS: BP 109/73; PULSE 82; TEMP 36.7; O2SAT 97
--- NOTE | 2016-07-30 19:58 | SURGERY PROGRESS NOTE ---
DATE: 07/30/2016 Mr. Gordon is now postop day #12 status post a thoracoscopic left upper lobectomy for a stage I non-small cell lung carcinoma. He still has an air leak. I going to switch him over to a Heimlich valve if he really not draining fluid. We will have him ambulate and talk about may be getting him home tomorrow with his Heimlich valve in place. He does have some reservations about it, but I think he is about ready to go home.
[2016-07-30] MEDS: SIMVASTATIN 40 MG TAB PO SCH (20:40)
[2016-07-30 23:00] VITALS: BP 103/44; PULSE 79; TEMP 36.6; O2SAT 96
[2016-07-31] MEDS: OXYCODONE/ACETAMINOPHEN 5-325 TAB PO PRN ×2 (00:02→20:34)
[2016-07-31] MEDS: ALUMINUM/MAGNESIUM/SIMETH (MAALOX MAX) 30 ML UDC PO PRN ×2 (00:03→05:25)
--- NOTE | 2016-07-31 06:41 | DIAGNOSTIC IMAGING REPORT ---
CHEST ONE VIEW PORTABLE CLINICAL HISTORY: Postop lobectomy. Pneumothorax. COMPARISON STUDY: 07/27/2016 FINDINGS: Left-sided chest tube remains unchanged in position. There is a left apical pneumothorax the pleural separation 43 mm. There is extensive subcutaneous emphysema present. There are minor left basilar atelectatic changes. Right lung appears generally clear. There is no significant pleural fluid.[ IMPRESSION: Postsurgical change. Left apical pneumothorax with pleural separation 43 mm. Electronically signed by: Yosvany Pedroza M.D. 07/31/2016 6:39 AM Dictated Date/Time: 07/31/2016 6:37 AM
[2016-07-31 07:21] VITALS: BP 111/78; PULSE 81; TEMP 36.5; O2SAT 96
--- NOTE | 2016-07-31 08:31 | SURGERY PROGRESS NOTE ---
DATE: 07/31/2016 Mr. Gordon was seen today on 07/31/2016. He has had some breakdown of his access incision in the 4th interspace. Today, I took down all dressings and inspected it. He is sucking air through this. This is probably the reason for his continued air leak. His chest x-ray showed that his apical pneumothorax had gotten a bit larger; however, I think this may be his problem. I am going to take him back to the operating room tomorrow and under local anesthesia with sedation, I am going to close this incision over antibiotic beads. This should stop his air leak. We will explore this wound and close it.
[2016-07-31] MEDS: LISINOPRIL 2.5 MG TAB PO SCH (09:00)
[2016-07-31] MEDS: FLUTICASONE/SALMETEROL (ADVAIR) 500/50 INH 14 PUFF INH SCH (09:19)
[2016-07-31] MEDS: ENOXAPARIN 40 MG/0.4 ML SYR SQ SCH (09:19)
[2016-07-31] MEDS: PANTOprazole SOD 40 MG TAB PO SCH ×2 (09:20→20:34)
[2016-07-31] MEDS: TIOTROPIUM BROMIDE 5 PUFF/90 MCG INH INH SCH (09:20)
[2016-07-31] MEDS: DOCUSATE SODIUM 100 MG CAP PO SCH ×2 (09:21→20:34)
[2016-07-31 09:24] VITALS: BP 95/58; PULSE 81
[2016-07-31 11:50] VITALS: BP 106/67; PULSE 86; TEMP 36.4; O2SAT 95
[2016-07-31 15:18] VITALS: BP 109/73; PULSE 79; TEMP 36.6; O2SAT 95
[2016-07-31] MEDS: SIMVASTATIN 40 MG TAB PO SCH (20:34)
[2016-07-31 22:51] VITALS: BP 106/67; PULSE 78; TEMP 36.7; O2SAT 95
[2016-08-01] VITALS (7 sets, daily range): BP systolic 95–107; BP diastolic 61–69; PULSE 74–81; TEMP 36.3–36.7; O2SAT 93–98
--- NOTE | 2016-08-01 06:52 | DIAGNOSTIC IMAGING REPORT ---
CHEST ONE VIEW PORTABLE CLINICAL HISTORY: pneumothorax COMPARISON STUDY: 07/31/2016 FINDINGS: Left-sided chest tube is again visualized. There is subcutaneous emphysema present. There is a left apical pneumothorax the pleural separation of 27 mm. There is tenting of left hemidiaphragm. There is stable left basilar interstitial opacities.[ IMPRESSION: Slight decrease in the size of the left apical pneumothorax with a current pleural separation of 27 mm. Electronically signed by: Yosvany Pedroza M.D. 08/01/2016 6:50 AM Dictated Date/Time: 08/01/2016 6:50 AM
[2016-08-01] MEDS: DOCUSATE SODIUM 100 MG CAP PO SCH ×2 (07:27→20:41)
[2016-08-01] MEDS: LISINOPRIL 2.5 MG TAB PO SCH (07:27)
[2016-08-01] MEDS: TIOTROPIUM BROMIDE 5 PUFF/90 MCG INH INH SCH (07:28)
[2016-08-01] MEDS: FLUTICASONE/SALMETEROL (ADVAIR) 500/50 INH 14 PUFF INH SCH (07:28)
[2016-08-01] MEDS: PANTOprazole SOD 40 MG TAB PO SCH ×2 (07:29→20:41)
[2016-08-01] MEDS: OXYCODONE/ACETAMINOPHEN 5-325 TAB PO PRN ×3 (07:30→23:56)
--- NOTE | 2016-08-01 12:03 | Progress Note ---
Subjective Date of Service: Aug 01, 2016. Subjective Pt evaluation today including: conversation w/ patient, physical exam Review of Systems All Other Systems: Reviewed and Negative (No problems overnight.CXR looks better. No real change overall.) Objective Vital Signs Date Time Temp Pulse Resp B/P Pulse Ox O2 Delivery O2 Flow Rate FiO2 08/01/16 07:20 Room Air 08/01/16 06:57 36.7 78 17 104/64 95 Room Air 07/31/16 22:51 36.7 78 16 106/67 95 Room Air 07/31/16 19:30 Room Air 07/31/16 15:18 36.6 79 18 109/73 95 Room Air
[2016-08-01] MEDS ORDERED: MIDAZOLAM HCL 1 MG/ML 2ML VIAL ONE (12:04)
[2016-08-01] MEDS ORDERED: FENTANYL CITRATE INJ 50 MCG/1 ML 2 ML VIAL ONE (12:05)
[2016-08-01] MEDS ORDERED: PROPOFOL IV EMULSION 10 MG/ML 20 ML VIAL IV ONE (12:33)
[2016-08-01] MEDS ORDERED: LIDOCAINE HCL 2% 2 ML VIAL (20MG/ML) ONE (12:33)
[2016-08-01] MEDS ORDERED: EpHEDrine SULFATE 50MG/5ML SYR ONE (12:33)
[2016-08-01] MEDS ORDERED: KETAMINE HCL INJ 50 MG/ML 10 ML VIAL ONE (12:42)
[2016-08-01] MEDS ORDERED: SODIUM CHLORIDE 0.9% INJ 10 ML VIAL ONE (12:43)
[2016-08-01] MEDS ORDERED: VANCOMYCIN HCL 1000MG/20ML VIAL TOP ONE (13:25)
[2016-08-01] MEDS ORDERED: GENTAMICIN SULFATE 40 MG/ML 2 ML VIAL INSTIL ONE (13:25)
[2016-08-01] MEDS ORDERED: LIDOCAINE/EPINEPHRINE 1% 20 ML VIAL INJ ONE (13:27)
[2016-08-01] MEDS ORDERED: BUPIVACAINE 0.5% W/EPI 1:200,000 INJ ONE (13:28)
[2016-08-01] MEDS ORDERED: EpHEDrine SULFATE INJ 50 MG/ML AMP IV PRN (13:30)
[2016-08-01] MEDS ORDERED: NALOXONE HCL 0.4 MG/1 ML VIAL/CARP IV PRN (13:30)
[2016-08-01] MEDS ORDERED: LABETALOL HCL IV 5 MG/ML 20ML IV PRN (13:30)
[2016-08-01] MEDS ORDERED: ONDANSETRON INJ 2 MG/ML 2 ML VIAL IV PRN (13:30)
[2016-08-01] MEDS ORDERED: PROMETHAZINE HCL INJ 12.5 MG in SODIUM CHLORIDE 0.9% 50ML 50 ML IV PRN (13:30)
[2016-08-01] MEDS ORDERED: ATROPINE SULFATE 0.1 MG/ML 5ML SYR IV PRN (13:30)
--- NOTE | 2016-08-01 13:52 | Anesthesiology Progress Note ---
Anesthesia Post Op Note Date & Time Aug 01, 2016 at 13:51 Vital Signs Pain Intensity: 0 Vital Signs Past 12 Hours Date Time Temp Pulse Resp B/P Pulse Ox O2 Delivery O2 Flow Rate FiO2 08/01/16 13:33 104/68 08/01/16 13:31 64 14 96 08/01/16 13:31 65 14 08/01/16 13:29 36.1 76 18 109/79 95 Nasal Cannula 2 08/01/16 13:29 108/60 08/01/16 13:26 67 13 08/01/16 13:26 67 13 95 08/01/16 13:23 111/72 08/01/16 13:21 73 15 97 08/01/16 13:21 69 15 08/01/16 07:20 Room Air 08/01/16 06:57 36.7 78 17 104/64 95 Room Air Notes Mental Status: alert / awake / arousable, participated in evaluation Pt Amnestic to Procedure: Yes Nausea / Vomiting: adequately controlled Pain: adequately controlled Airway Patency, RR, SpO2: stable & adequate BP & HR: stable & adequate Hydration State: stable & adequate Anesthetic Complications: no major complications apparent
[2016-08-01] MEDS: ENOXAPARIN 40 MG/0.4 ML SYR SQ SCH (13:57)
[2016-08-01] MEDS: HYDROmorphone INJ 1 MG/ML SYR IV PRN ×4 (14:00→14:15)
[2016-08-01] MEDS ORDERED: NURSING VERBAL MED ORDER ONE ×2 (14:00→20:30)
--- NOTE | 2016-08-01 14:10 | DIAGNOSTIC IMAGING REPORT ---
CHEST ONE VIEW PORTABLE HISTORY: pneumothorax COMPARISON: Chest 08/01/2016. FINDINGS: Slight decrease in size in the small left apical pneumothorax which demonstrates a pleural gap of 2.2 cm. Left-sided chest tube terminates in the left lung apex. This remains unchanged. There is improved aeration within the left lung base. The right lung is essentially clear. The heart is stable in size. The base and left chest wall subcutaneous emphysema persists. Cluster of nodular densities at the left lateral chest wall. This may be overlying the patient. IMPRESSION: 1. Slight decrease in size in the small left pneumothorax. The left-sided chest tube is unchanged in position. 2. Improved aeration within the left lung base. Electronically signed by: Jeff Adams M.D. 08/01/2016 2:09 PM Dictated Date/Time: 08/01/2016 2:06 PM
--- NOTE | 2016-08-01 14:12 | OPERATIVE REPORT ---
DATE OF OPERATION: 08/01/2016 PREOPERATIVE DIAGNOSIS: Breakdown of thoracoscopy incision with air leak. POSTOPERATIVE DIAGNOSIS: Same. PROCEDURE: Exploration of wound with closure and implantation of pharmaceutical grade calcium sulfate beads impregnated with vancomycin, gentamicin. SURGEON: Dr. Pacheco. PROSTHETIC AIDE: NNAMDI Boogie. ANESTHESIA: Local MAC. SPECIFICS OF PROCEDURE: The patient is 2 weeks out from a left upper lobectomy, has had an air leak which has been persistent. I took down all the dressings and evaluated him yesterday and the problem appears to be, that he has some breakdown of his left anterior working channel at about the fourth interspace. There was an area about 1 cm in length, but it opened up and there was fluid coming out. At this point, I elected to proceed with exploration and closure of this. I opened the wound and really saw no evidence of any purulence. The muscle had and I reapproximated it. I then implanted Stimulan pharmaceutical grade calcium sulfate beads reconstituted with vancomycin, gentamicin to completely fill the wound over the closed muscle layer. 3-0 nylons were used in a vertical mattress fashion to reapproximate the skin. He tolerated it quite well. I attest to the content of the Intraoperative Record and any orders documented therein. Any exceptio ns are noted below.
[2016-08-01] MEDS: SIMVASTATIN 40 MG TAB PO SCH (20:41)
[2016-08-02 03:17] VITALS: BP 101/68; PULSE 71; TEMP 36.6; O2SAT 97
[2016-08-02 07:01] VITALS: BP 146/84; PULSE 71; TEMP 36.3; O2SAT 97
[2016-08-02] MEDS: FLUTICASONE/SALMETEROL (ADVAIR) 500/50 INH 14 PUFF INH SCH (07:52)
[2016-08-02] MEDS: TIOTROPIUM BROMIDE 5 PUFF/90 MCG INH INH SCH (07:52)
[2016-08-02] MEDS: OXYCODONE/ACETAMINOPHEN 5-325 TAB PO PRN (07:52)
--- NOTE | 2016-08-02 07:52 | DIAGNOSTIC IMAGING REPORT ---
CHEST ONE VIEW PORTABLE HISTORY: pneumothorax COMPARISON: Chest 08/01/2016. FINDINGS: Small left apical pneumothorax is slightly increased in size and now demonstrates a pleural gap of 2.8 cm. Left-sided chest tube remains unchanged in position of the left lung apex. Linear density at the base of the left lower lobe favors subsegmental atelectasis. Left chest wall and neck base subcutaneous emphysema is again noted. The right lung remains clear. The heart is normal in size. IMPRESSION: Slight increase in size in the small left apical pneumothorax. Left-sided chest tube is unchanged in position. Electronically signed by: Jeff Adams M.D. 08/02/2016 7:50 AM Dictated Date/Time: 08/02/2016 7:49 AM
[2016-08-02] MEDS: PANTOprazole SOD 40 MG TAB PO SCH (07:53)
[2016-08-02] MEDS: ENOXAPARIN 40 MG/0.4 ML SYR SQ SCH (07:53)
[2016-08-02] MEDS: DOCUSATE SODIUM 100 MG CAP PO SCH (07:53)
[2016-08-02] MEDS: LISINOPRIL 2.5 MG TAB PO SCH (07:53)
[2016-08-02] MEDS ORDERED: DOCU-94 PO (08:55)
--- NOTE | 2016-08-02 08:57 | Discharge Instructions ---
Discharge Instructions Admission Reason for Admission: Left Lung Nodule Discharge Discharge Diagnosis / Problem: Left Lung Nodule Discharge Goals Goal(s): Learn about illness Activity Recommendations Activity Limitations: resume your previous activity . Instructions / Follow-Up Instructions / Follow-Up 1. Do not fly until cleared to do so by Dr. Crawford. 2. Office appointment with Dr. Pacheco in 1 week. Office will call you with date and time of appointment. You will need a chest-ray prior to appointment. Current Hospital Diet Patient's current hospital diet: Regular Diet Discharge Diet Recommended Diet: Regular Diet Procedures Procedures Performed: Exploration and Drainage of Left Thoracoscopy Site with Antibiotic Bead Insertion Pending Studies Studies pending at discharge: no Medical Emergencies . Who to Call and When: Medical Emergencies: If at any time you feel your situation is an emergency, please call 911 immediately. . Non-Emergent Contact Non-Emergency issues call your: Surgeon Call Non-Emergent contact if: you have a fever, your pain is not controlled, wound has increased drainage . "Provider Documentation" section prepared by Cliff Crabtree. VTE Core Measure Inpt VTE Proph given/why not?: Enoxaparin (Lovenox)SQ
[2016-08-02] MEDS ORDERED: OXYC-57 PO (09:01)
[2016-08-02 09:20] VITALS: BP 146/84; PULSE 71; TEMP 36.3; O2SAT 97
--- NOTE | 2016-08-02 09:44 | DISCHARGE SUMMARY ---
DATE OF DISCHARGE: 08/02/2016 DISCHARGE DIAGNOSES: 1. Adenocarcinoma, left upper lobe (stage I). 2. Prolonged air leak. 3. Breakdown of left thoracoscopy incision. 4. History of cigarette smoking. HOSPITAL COURSE: Mr. Wilde is a 56-year-old male who was found to have a hypermetabolic mass of his left upper lobe. I took the patient to the operating room on 07/18/2016 and did a thoracoscopic wedge resection and frozen section, and turns out this is an adenocarcinoma. I then proceeded with a thoracoscopic left upper lobectomy with a mediastinal lymph node dissection. The patient did not have an air leak at the conclusion of the case. However, the next morning, he was noted to have one and it actually persisted. After a week or so, he began draining from his access site, which was approximately a 4 cm incision at the fourth interspace. It is unclear to me whether he had a reaction to the sutures, but he opened up about a centimeter area and then began leaking, not just fluid, but air. For this reason, on 08/01/2016 I took the patient back to the operating room and closed this. I saw no evidence of infection. The muscle had come apart and I reapproximated this using a 0 Vicryl. I then packed him with pharmaceutical calcium sulfate impregnated with vancomycin and gentamicin and closed him completely with vertical mattress nylon sutures. He tolerated it well. He did have some drainage from this; however, he really had no pain. He has an anterior chest tube in place which is a 16 Tajik, and has a small air leak which I think has improved. His x-ray shows a very small pneumothorax with no pleural effusion. The patient was discharged today on postoperative day 15. I will see him back in the office in a week and hopefully, remove his chest catheter. He looked very good the last several days of his admission. He was ambulating in the hallway. He was moving his bowels. He was afebrile. I will see him back in the office in 1 week and hopefully will remove his chest tube at that time. SEVERO
--- NOTE | 2016-08-02 10:28 | Anesthesiology Progress Note ---
Anesthesia Post Op Note Date & Time Aug 02, 2016 at 10:28 Vital Signs Vital Signs Past 12 Hours Date Time Temp Pulse Resp B/P Pulse Ox O2 Delivery O2 Flow Rate FiO2 08/02/16 09:20 36.3 71 16 97 Room Air 08/02/16 08:00 Room Air 08/02/16 07:01 36.3 71 16 146/84 97 Room Air 08/02/16 03:17 36.6 71 16 101/68 97 Room Air 08/01/16 23:50 Room Air 08/01/16 23:14 36.6 81 16 95/61 96 Room Air Notes Mental Status: alert / awake / arousable, participated in evaluation Pt Amnestic to Procedure: Yes Nausea / Vomiting: adequately controlled Pain: adequately controlled Airway Patency, RR, SpO2: stable & adequate BP & HR: stable & adequate Hydration State: stable & adequate Anesthetic Complications: no major complications apparent
== END 2016-08-02 10:44 | disposition home or self-care (01) | DRG 164 ==
LOC: ENRESERVTM → ENRESERVDT → C.ACU 09:30 → C.MSW 10:55
PROVIDERS: ADMIT Surgery; ATTEND Surgery
PROC: 07B74ZX Excision of Thorax Lymphatic, Percutaneous Endoscopic Approach, Diagnostic (ICD-10-PCS; 2016-07-18)
PROC: 0BBG4ZX Excision of Left Upper Lung Lobe, Percutaneous Endoscopic Approach, Diagnostic (ICD-10-PCS; 2016-07-18)
PROC: 0BTG4ZZ Resection of Left Upper Lung Lobe, Percutaneous Endoscopic Approach (ICD-10-PCS; principal; 2016-07-18 12:00)
PROC: 0W9B30Z Drainage of Left Pleural Cavity with Drainage Device, Percutaneous Approach (ICD-10-PCS; 2016-07-20)
DX: C34.12 Malignant neoplasm of upper lobe, left bronchus or lung (principal); J93.9 Pneumothorax, unspecified; J93.82 Other air leak; J34.9 Unspecified disorder of nose and nasal sinuses; R68.3 Clubbing of fingers; R33.9 Retention of urine, unspecified; I10 Essential (primary) hypertension; F17.210 Nicotine dependence, cigarettes, uncomplicated; Z79.899 Other long term (current) drug therapy; Z80.9 Family history of malignant neoplasm, unspecified; Z83.3 Family history of diabetes mellitus; Z82.49 Family history of ischemic heart disease and other diseases of the circulatory system

== ENCOUNTER 2016-08-09 14:38 | Inpatient (IN) | payer OTHER ==
[~2016-08-09] VITALS: Ht 175.3 cm; Wt 76.6 kg
[~2016-08-09 14:38] MED LIST changes: -CLC100 PO; -NRN300 PO
[2016-08-09] MEDS ORDERED: ONDANSETRON INJ 2 MG/ML 2 ML VIAL IV PRN (14:45)
[2016-08-09] MEDS ORDERED: ALBUTEROL HFA 8 GM INHALER INH PRN (15:00)
[2016-08-09 15:20] VITALS: BP 123/84; PULSE 90; TEMP 36.6; O2SAT 95; Ht 175.3 cm; Wt 76.6 kg
--- NOTE | 2016-08-09 15:33 | History and Physical ---
History & Physical H & P Dictated #[id number]
[2016-08-09] MEDS ORDERED: PIPERACILL/TAZOBAC CONSULT ACTIVE PRN (16:00)
[2016-08-09] MEDS ORDERED: PIPERACILL/TAZOBAC IV 3.375 GM in DEXTROSE 5% 100ML IV ONE (16:00)
[2016-08-09] MEDS: ACETAMINOPHEN 325 MG TAB PO SCH ×2 (16:02→20:27)
--- NOTE | 2016-08-09 16:11 | HISTORY & PHYSICAL EXAMINATION ---
DATE OF ADMISSION: 08/09/2016 CHIEF COMPLAINT: Chest wall pain from previous incision. HISTORY OF PRESENT ILLNESS: This is a 56-year-old male, well known to the service of Dr. Pacheco. The patient was seen initially by Dr. Pacheco as an outpatient due to concern for a left lung nodule. Because of the radiographic findings and the patient's history, he was admitted to the hospital on July 18, where the patient underwent a left video-assisted thoracoscopy and ultimately underwent a left lung upper lobectomy and lymphadenectomy. Pathology came back as nonsmall cell lung cancer. The patient did have a somewhat complicated postoperative course. The patient was noted to have a persistent pneumothorax postoperatively and therefore, he had to have an additional anterior chest tube placed. The patient continued to have a persistent air leak during the postoperative phase and it was felt that he was actually sucking air through his axillary thorascopic incision. Because of this, Dr. Pacheco had the patient return to the operating room, where he did a wound exploration and primary closure over antibiotic beads and this was performed on 08/01/2016. The patient continued to have an air leak and a small pneumothorax on chest x-ray and his chest tube anteriorly was placed to Heimlich valve and his remaining chest was discontinued and he was ultimately discharged in stable condition with Heimlich valve in place. We received the call from home nursing that the patient had a large amount of serous drainage and addition some of his antibiotic beads had actually protruded through his left axillary incision. An appointment was made to see the patient in the office on August 07; however, due to inclement weather, the patient was unable to make that appointment and he did see us in the office today, which was August 09. While the patient was seen in the office, he was noted to have persistent air leak through his Heimlich valve. His left axillary incision did have some serous drainage and some of his antibiotic beads were protruding through this. It is also noteworthy to mention that the patient had a chest x-ray prior to his appointment, which showed that he did have a left apical pneumothorax. Because of the amount of drainage from the wound, the antibiotic beads that were protruding were removed and the patient had some simple interrupted sutures using 3-0 nylon placed on his wound. The patient did seem to have a significant amount of pain and increased fatigue, so Dr. Pacheco recommended direct admission to the hospital for further care. When questioned about other symptomatology, the patient has not had any falls or visual changes. He denies any tinnitus, vertigo, epistaxis or sore throat. He denies any neck pain. He notes some chest wall pain located primarily in his left axillary incision. He denies any substernal chest pain. He says that he does have some slight shortness of breath that seems to be worse with activity. He denies fevers, shakes or chills. He has not had any abdominal pain, nausea, vomiting or diarrhea. He notes that his appetite is fair. He denies any dysuria. He denies any myalgias. He has no history of DVT or PE. PAST MEDICAL HISTORY: Includes, 1. Hypertension. 2. History of nonsmall cell lung cancer, diagnosed in July of this year. PAST SURGICAL HISTORY: Includes: 1. Jaw surgery. 2. Left video-assisted thoracoscopy with left upper lobectomy and lymphadenectomy on July 18 of this year. 3. Placement of left anterior chest tube on July 20 of this year. 4. Left axillary incision wound exploration and primary closure over antibiotic beads on August 01 of this year. ALLERGIES: None. OUTPATIENT MEDICATIONS: Include: 1. Albuterol inhaler 2-4 puffs every 6 hours as needed for shortness of breath. 2. Colace 100 mg twice daily. 3. Advair Diskus 500/50 in the morning. 4. Lisinopril 2.5 mg daily. 5. Percocet as needed for pain. 6. Zocor 40 mg daily. 7. Spiriva inhaler daily. SOCIAL HISTORY: The patient does have a positive smoking history. FAMILY HISTORY: Positive for diabetes and hypertension. REVIEW OF SYSTEMS: See above. PHYSICAL EXAMINATION: VITAL SIGNS: Today in the office, the patient was noted to have a pulse ox of 94% on room air. GENERAL: He is alert. He is oriented x3. He appears to be in discomfort from pain of his left axillary incision that seems to be worse with coughing. HEENT: Head is atraumatic and normocephalic. EYES: Pupils are equal, round and reactive to light and accommodation. Extraocular motions are intact. EARS: Auditory acuity is grossly intact. NOSE: Nasal patency was intact. Sinuses are nontender. MOUTH: Moist without exudates. NECK: Supple. There is no JVD. CARDIOVASCULAR: Regular rate and rhythm. LUNGS: The patient's lungs revealed that breath sounds were present and adequate bilaterally without rales, rhonchi or wheezing. His chest wall exam revealed that the patient had a left anterior chest tube in place that was connected to a Heimlich valve. Once immersed in water, the Heimlich valve did reveal an air leak. The patient's inferior thorascopic incisions were well healed without signs of infection. His left thorascopic axillary incision did have minimal erythema surrounding it. There was some serous drainage with antibiotic beads protruding through this. There is no purulent drainage. This did not appear to be grossly infected. ABDOMEN: Soft and nontender. EXTREMITIES: Revealed no cyanosis, clubbing or edema. NEUROLOGIC: Revealed cranial nerves II through XII are grossly intact. No focal deficits are noted. IMPRESSION: A 56-year-old male with chest wall pain, pneumothorax, and lung cancer. PLAN: Due to the chest x-ray findings, his wound findings and his amount of pain, Dr. Pacheco has recommended direct admission to the hospital and the patient is agreeable to this. Upon admission, we will check a full set of labs including a CBC, CMP, magnesium and coagulation studies. We will also check sputum culture, blood cultures as well as urinalysis and culture to ensure the patient does not have any underlying sepsis contributing to his current presentation. Once these labs are collected, we will place the patient on broad spectrum antibiotics and we will utilize Zosyn for this. Concerning the patient's postoperative pain, air leak and pneumothorax, we will check a CT scan of his chest to further evaluate any abnormal findings that may be present in his chest cavity. We will make sure that the patient has adequate analgesics and we have ordered scheduled Tylenol, p.r.n. Roxicodone and p.r.n. morphine. As the patient will be on narcotic pain medications, we will place him on Colace and we will add additional bowel regimen if needed. The patient does not have a formal diagnosis of COPD, but will likely have this condition as he takes Advair, Spiriva and albuterol inhalers and these will all be continued. Further recommendations will be made based on the findings of his labs as well as a CT scan. We will make the patient n.p.o. at midnight as the patient may require bronchoscopy and potential thorascopic surgery to evaluate his air leak and pneumothorax tomorrow. The patient is aware and is agreeable. I will utilize SCDs for DVT prevention at this point and we will hold on chemical means until we decide if the patient is going to the operating room or not. This patient will be a full resuscitation, which is a level 1.
--- NOTE | 2016-08-09 16:19 | DIAGNOSTIC IMAGING REPORT ---
CHEST CT WITHOUT CONTRAST CT DOSE: 440.36 mGycm HISTORY: pneumothorax; air leak TECHNIQUE: Multiaxial CT images of the chest were performed without contrast. COMPARISON: Chest 08/09/2016. Chest CT outside hospital 06/27/2016. FINDINGS: Overall, there is a small apical and small anterior basilar component to the left pneumothorax. These may represent separate loculated pneumothoraces. The left anterior basilar pneumothorax extends into a left anterolateral chest wall/pleural defect best seen on image 136 of 336. The defect measures 2.2 cm in size. There is left-sided chest wall subcutaneous emphysema. There is a focal area of hyperdense material near the left pleural defect. The patient is status post a left upper lobectomy. There is small left pleural effusion and left lower lobe consolidation. There are multiple small cavitary foci within this area of consolidation with the largest measuring 1.5 cm. There is emphysema. The right lung is clear. There is a left upper anterior chest tube. The distal 2.5 cm of the chest tube is within the upper pleural space. The remaining portions of the chest tube are located within the chest wall. Limited views of the upper abdomen demonstrate a normal liver, spleen, and adrenal glands. No mediastinal or hilar lymphadenopathy. Heart is normal in size. IMPRESSION: 1. Overall, there is a small apical and small anterior basilar component to the left pneumothorax. These may represent separate loculated pneumothoraces. The left anterior basilar pneumothorax extends into a left anterolateral chest wall/pleural defect as described above. 2. Status post left upper lobectomy. There is a left upper anterior chest tube with only the distal 2.5 cm of the chest tube located within the upper pleural space. The remaining portions of the chest tube located within the anterior chest wall. 3. Interval development of left lower lobe posterior basal consolidation with small cavitary foci. This likely represents a necrotizing pneumonia. Electronically signed by: Jeff Adams M.D. 08/09/2016 4:17 PM Dictated Date/Time: 08/09/2016 3:59 PM
[2016-08-09 16:33] LABS: BASO % 0.2 %; BASO ABS # 0.02 K/uL (0-0.2); EOS % 0.8 %; HEMATOCRIT 34.4 % (42-52); IG% 0.3 %; LYMPH % 12.7 %; LYMPH ABS # 1.16 K/uL (1.2-3.4); MEAN CELL VOLUME 86.2 fL (80-100); MEAN CORPUSCULAR HEMOGLOBIN 30.1 pg (25-34); MEAN PLATELET VOLUME 8.7 fL (7.4-10.4); MONO % 13.5 %; NEUT % 72.5 %; PLATELET COUNT 359 K/uL (130-400); RED BLOOD COUNT 3.99 M/uL (4.7-6.1); WHITE BLOOD COUNT 9.12 K/uL (4.8-10.8)
[2016-08-09 16:39] LABS: COMPLETE YES; MEAN CORPUSCULAR HGB CONC 34.9 g/dl (32-36)
[2016-08-09] MEDS ORDERED: TEMAZEPAM 7.5 MG CAP PO PRN (16:45)
[2016-08-09 16:47] LABS: PARTIAL THROMBOPLASTIN RATIO 1.1
[2016-08-09 16:48] LABS: PROTHROMBIN TIME (PATIENT) 10.9 SECONDS (9.0-12.0)
[2016-08-09 16:54] LABS: ALB/GLOB RATIO 0.5 (0.9-2); BUN/CREATININE RATIO 13.4 (10-20); CALCIUM 8.5 mg/dl (8.5-10.1); MAGNESIUM 2.2 mg/dl (1.8-2.4); POTASSIUM 3.7 mmol/L (3.5-5.1)
--- NOTE | 2016-08-09 17:20 | SURGERY PROGRESS NOTE ---
DATE OF ADMISSION: 08/09/2016 HISTORY OF PRESENT ILLNESS: Mr. Gordon underwent an uncomplicated thoracoscopic left upper lobectomy on 07/18/2016 for an early stage lung cancer. This is an uneventful case. However, he developed an air leak postoperatively. It really was not very large, but I put an anterior chest tube in him and I at that time thought some of this was due to a space problem with his lung not filling the pleural cavity and would fill with time with expansion of his lung. He was in the hospital for an extended period of time and I then send him home about a week or so ago with a Heimlich valve in place. The patient also had drainage from his access sites fourth interspace and I took him back and explored this. The muscle appeared healthy. I reapproximated it and placed antibiotic beads and then closed it. He has been draining from this and in fact, today he had drainage coming from it in the office. The patient is having pain along the left base. He has had no fevers or chills. He has been eating. He is quite upset in the office. He is still leaking air through his Heimlich valve. I brought him into the hospital and had a CT scan. We put him on antibiotics despite the fact that he has no elevation of his white count and no fevers. CT scan shows he has had some probable pleural fluid in the medial left base. He has a very small pneumothorax. He continued to drain from this incision; however, and I believe this patient has probably developed an empyema and he is draining "per necessitans". I am going to return to the OR for a thoracoscopy and repair this air leak and clean out this empyema. SEVERO
[2016-08-09] MEDS ORDERED: PIPERACILL/TAZOBAC IV 3.375 GM in DEXTROSE 5% 100ML 100 ML IV SCH (18:00)
[2016-08-09 18:55] LABS: URINE APPEARANCE CLEAR (CLEAR); URINE BILIRUBIN NEG (NEG); URINE COLOR YELLOW; URINE NITRITE NEG (NEG); URINE SPECIFIC GRAVITY 1.023 (1.000-1.030); UROBILINOGEN NEG (NEG)
[2016-08-09 19:09] LABS: MANUAL MICROSCOPIC REQUIRED? NO
[2016-08-09 19:10] LABS: REVIEW REQ? NO
[2016-08-09] MEDS: SIMVASTATIN 40 MG TAB PO SCH (20:26)
[2016-08-09] MEDS: DOCUSATE SODIUM 100 MG CAP PO SCH (20:26)
[2016-08-09] MEDS: OXYCODONE HCL IR 5 MG TAB (IMMEDIATE RELEASE) PO PRN (20:27)
[2016-08-09] MEDS: GABAPENTIN 100 MG CAP PO SCH (20:27)
[2016-08-09] MEDS: PIPERACILL/TAZOBAC IV 3.375 GM in DEXTROSE 5% 100ML IV SCH (21:20)
[2016-08-09 23:05] VITALS: BP 117/66; PULSE 66; TEMP 36.2; O2SAT 96
[2016-08-10] VITALS (9 sets, daily range): BP systolic 93–124; BP diastolic 54–77; PULSE 72–83; TEMP 36.2–36.7; O2SAT 90–99
[2016-08-10] MEDS: ACETAMINOPHEN 325 MG TAB PO SCH ×4 (04:04→22:05)
[2016-08-10] MEDS: PIPERACILL/TAZOBAC IV 3.375 GM in DEXTROSE 5% 100ML IV SCH ×3 (05:43→22:05)
[2016-08-10] MEDS: OXYCODONE HCL IR 5 MG TAB (IMMEDIATE RELEASE) PO PRN (05:47)
[2016-08-10] MEDS: FLUTICASONE/SALMETEROL (ADVAIR) 500/50 INH 14 PUFF INH SCH (08:23)
[2016-08-10] MEDS: TIOTROPIUM BROMIDE 5 PUFF/90 MCG INH INH SCH (08:24)
[2016-08-10] MEDS: DOCUSATE SODIUM 100 MG CAP PO SCH ×2 (08:26→22:05)
[2016-08-10] MEDS: MoRPHine SULFATE 2 MG/ML CARP IV PRN ×2 (08:34→23:30)
[2016-08-10] MEDS: LISINOPRIL 2.5 MG TAB PO SCH (09:00)
[2016-08-10] MEDS ORDERED: FENTANYL CITRATE INJ 50 MCG/1 ML 2 ML VIAL ONE ×2 (15:20→19:26)
[2016-08-10] MEDS ORDERED: MIDAZOLAM HCL 1 MG/ML 2ML VIAL ONE (15:20)
[2016-08-10] MEDS ORDERED: KETAMINE HCL INJ 50 MG/ML 10 ML VIAL ONE (15:24)
[2016-08-10] MEDS ORDERED: BUPIVACAINE LIPOSOME 1/3% 266 MG/20 ML VIAL INFIL ONE (15:48)
[2016-08-10] MEDS ORDERED: SODIUM CHLORIDE 0.9% INJ 10 ML VIAL ONE (18:29)
[2016-08-10] MEDS ORDERED: PHENYLEPHRINE HCL INJ 10 MG/ML VIAL ONE (18:29)
[2016-08-10] MEDS ORDERED: GLYCOPYRROLATE INJ 0.2 MG/ML VIAL ONE (18:29)
[2016-08-10] MEDS ORDERED: CISATRACURIUM BESYLATE IV SOLN 2 MG/ML 10 ML VIAL ONE (18:29)
[2016-08-10] MEDS ORDERED: LIDOCAINE HCL 2% 2 ML VIAL (20MG/ML) ONE (18:29)
[2016-08-10] MEDS ORDERED: DEXAMETHASONE SOD INJ 4 MG/ML VIAL ONE (18:29)
[2016-08-10] MEDS ORDERED: EpHEDrine SULFATE 50MG/5ML SYR ONE (18:29)
[2016-08-10] MEDS ORDERED: SUCCINYLCHOLINE CHLORIDE 20 MG/ML 10 ML VIAL IV ONE (18:29)
[2016-08-10] MEDS ORDERED: PROPOFOL IV EMULSION 10 MG/ML 20 ML VIAL IV ONE (18:29)
[2016-08-10] MEDS ORDERED: NEOSTIGMINE METHYLSULFATE 5 MG/5 ML SYR ONE (18:29)
[2016-08-10] MEDS ORDERED: ONDANSETRON INJ 2 MG/ML 2 ML VIAL ONE (18:29)
[2016-08-10] MEDS ORDERED: MIX: 266 MG EXPAREL + 40 ML INJ SALINE INJ ONE (18:48)
[2016-08-10] MEDS ORDERED: PROGEL PLEURAL AIR LEAK SEALANT 4ML TOP ONE (18:48)
[2016-08-10] MEDS ORDERED: BACITRACIN 50,000 UNITS IR ONE (19:16)
[2016-08-10] MEDS ORDERED: PROMETHAZINE HCL INJ 12.5 MG in SODIUM CHLORIDE 0.9% 50ML 50 ML IV PRN (19:45)
[2016-08-10] MEDS ORDERED: ONDANSETRON INJ 2 MG/ML 2 ML VIAL IV PRN (19:45)
[2016-08-10] MEDS ORDERED: NALOXONE HCL 0.4 MG/1 ML VIAL/CARP IV PRN (19:45)
[2016-08-10] MEDS ORDERED: EpHEDrine SULFATE INJ 50 MG/ML AMP IV PRN (19:45)
[2016-08-10] MEDS ORDERED: HYDROmorphone INJ 1 MG/ML SYR IV PRN (19:45)
[2016-08-10] MEDS ORDERED: LABETALOL HCL IV 5 MG/ML 20ML IV PRN (19:45)
[2016-08-10] MEDS ORDERED: ATROPINE SULFATE 0.1 MG/ML 5ML SYR IV PRN (19:45)
--- NOTE | 2016-08-10 20:25 | DIAGNOSTIC IMAGING REPORT ---
CHEST ONE VIEW PORTABLE CLINICAL HISTORY: s/p VATS postoperative evaluation COMPARISON STUDY: 08/09/2016 FINDINGS: Interval replacement/revision of a left-sided chest tube. Small residual left apical pneumothorax with a maximum pleural separation of 3 cm. This is improved from the prior study of 4.5 cm. Persistent increase in parenchymal markings left and to a lesser extent right base. Upper right lung is clear. IMPRESSION: Improved exam with a small residual left apical pneumothorax. Electronically signed by: Pop Villafana M.D. 08/10/2016 8:23 PM Dictated Date/Time: 08/10/2016 8:22 PM
--- NOTE | 2016-08-10 20:39 | Anesthesiology Progress Note ---
Anesthesia Post Op Note Date & Time Aug 10, 2016 at 20:39 Vital Signs Pain Intensity: 0 Vital Signs Past 12 Hours Date Time Temp Pulse Resp B/P Pulse Ox O2 Delivery O2 Flow Rate FiO2 08/10/16 20:30 74 20 118/74 100 Mask 10 08/10/16 20:20 86 20 117/77 100 Mask 10 08/10/16 20:10 99 18 135/79 99 Mask 10 08/10/16 20:08 36.0 107 18 136/84 100 Mask 10 08/10/16 15:01 36.7 75 16 109/72 94 Room Air 08/10/16 09:03 92 Room Air 08/10/16 08:45 Room Air Notes Mental Status: alert / awake / arousable, participated in evaluation Pt Amnestic to Procedure: Yes Nausea / Vomiting: adequately controlled Pain: adequately controlled Airway Patency, RR, SpO2: stable & adequate BP & HR: stable & adequate Hydration State: stable & adequate Anesthetic Complications: no major complications apparent
[2016-08-10 20:41] LABS: ARTERIAL BLD GAS O2 SATURATION 99.5 % (90-95); ARTERIAL BLOOD GAS BASE EXCESS -4.2 mEq/L (-9-1.8); ARTERIAL BLOOD GAS HCO3 21 mmol/L (19-24); ARTERIAL BLOOD GAS PO2 266 mm/Hg (80-95); ARTERIAL BLOOD GAS pH 7.35 (7.35-7.45)
[2016-08-10 20:42] LABS: ALLEN TEST POS (POS); O2 ADMINISTRATION 10L
[2016-08-10] MEDS: SODIUM CHLORIDE 0.9% 1000ML 1,000 ML IV SCH ×2 (21:53→22:08)
[2016-08-10] MEDS: GABAPENTIN 100 MG CAP PO SCH ×3 (21:53→22:05)
[2016-08-10] MEDS: SIMVASTATIN 40 MG TAB PO SCH (22:06)
[2016-08-11] MEDS: OXYCODONE HCL IR 5 MG TAB (IMMEDIATE RELEASE) PO PRN ×3 (01:00→18:53)
[2016-08-11] MEDS: ACETAMINOPHEN 325 MG TAB PO SCH ×4 (03:39→20:50)
[2016-08-11] MEDS: MoRPHine SULFATE 2 MG/ML CARP IV PRN ×4 (03:39→21:35)
[2016-08-11 03:49] VITALS: BP 105/65; PULSE 71; TEMP 36.7; O2SAT 96
[2016-08-11 05:49] LABS: BASO % 0.1 %; BASO ABS # 0.01 K/uL (0-0.2); COMPLETE YES; HEMATOCRIT 29.9 % (42-52); IG% 0.3 %; LYMPH % 10.5 %; MEAN CELL VOLUME 87.2 fL (80-100); MEAN CORPUSCULAR HEMOGLOBIN 29.4 pg (25-34); MEAN CORPUSCULAR HGB CONC 33.8 g/dl (32-36); MEAN PLATELET VOLUME 8.7 fL (7.4-10.4); MONO % 8.2 %; NEUT % 80.9 %; PLATELET COUNT 328 K/uL (130-400); RED BLOOD COUNT 3.43 M/uL (4.7-6.1); WHITE BLOOD COUNT 7.65 K/uL (4.8-10.8)
[2016-08-11 06:02] LABS: POTASSIUM 3.9 mmol/L (3.5-5.1)
[2016-08-11] MEDS: PIPERACILL/TAZOBAC IV 3.375 GM in DEXTROSE 5% 100ML IV SCH (06:09)
--- NOTE | 2016-08-11 06:35 | OPERATIVE REPORT ---
DATE OF OPERATION: 08/10/2016 PREOPERATIVE DIAGNOSIS: Persistent air leak postoperatively. POSTOPERATIVE DIAGNOSIS: Same. PROCEDURES: 1. Reoperative thoracoscopy with lysis of adhesions. 2. Evacuation of pleural contents. 3. Oversewing of small parenchymal defect over emphysematous lungs. 4. Wedge resection of superior segment of the lower lobe for air leak. SURGEON: Dr. Pacheco. 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 ANESTHESIA: General anesthesia endotracheal intubation using a double lumen tube. SPECIFICS OF PROCEDURE: Mr. Gordon is an interesting 56-year-old man who underwent an uncomplicated thoracoscopic left upper lobectomy with mediastinal lymphadenectomy for stage I lung carcinoma about 3 weeks ago. He did well with the surgery. I was surprised that he had an air leak the evening after surgery. He really did not have one at the time of surgery. His air leak was rather small, so I ended up putting an anterior chest tube and he was in the hospital for an extended period of time, was sent home with a Heimlich valve. However, he came back and while he had no fever, no white count elevation, I was still concerned about him, he has a bit more pain along his left base. CT scan showed a small collection of fluid with air medially. I did not agree with the radiology interpretation of the CAT scan as I felt like this was extraparenchymal. On 08/10/2016, I took the patient back to the operating room and reopened the anterior incision with a working channel and upon placing the scope, really had trouble finding an air leak. I had 2 more ports, one original port anteriorly about the seventh interspace and I had put one a bit more anterior to the original posterior port as there were marked adhesions here. I then gently took down all adhesions of the left lower lobe. I was able to fully evaluate the lung and expand it well. At any rate, there was some fibrinous material at the base which I removed and actually decorticated a small area of the left lower lobe. We had no bleeding. After all adhesions were taken down meticulously, I filled the chest with warm saline and inflated it and I saw 1 air leak from a punctate lesion over emphysematous lung. This did not appear to be an area of trauma. I marked this with methylene blue and then with the use of a 5-0 Prolene, I oversewed this with [id number] suture gently and this stopped this leaking. I then did not see a leak anywhere else. I then placed chest tube and closed the chest. However, prior to the patient waking up, we checked the chest tube and saw he had a large air leak. Opening back up, it could be seen that this was an area that was probably due to our dissection from the takedown of adhesions. We wedged this out using Endo-AMADA stapler. He then had no air leak whatsoever. I irrigated out the chest with warm antibiotic solution, used 3000 mL with bacitracin. I was quite happy with the appearance of his chest after this. I did block him with Exparel 266 mg in 60 mL of normal saline, injected from the 2nd through 11th interspace above the rib. There was no bleeding associated with this. I placed a Pleurx catheter along the base. We did do a Gram stain of the fluid we got out of the chest, there were no organisms seen. A 24-Stateless chest tube was directed towards the apex. I held it in place with heavy silk suture. I did place some antibiotic beads in the wounds as these had been opened twice, especially the working channel and I was concerned about this. I closed the deeper muscle layers with 0 Vicryl, then placed the antibiotic beads. These were pharmaceutical calcium sulfate beads reconstituted with vancomycin and gentamicin. When they achieved a putty like consistency, I placed them on a mold. When the material had dried, the mold was bent and these pellets removed. They were used to pack all 3 of the wounds including a bit inside the chest tube site. I then used skin clips to close all of the incisions. It should be noted that I had placed a Pleurx catheter through a separate stab wound and laid it along the diaphragmatic gutter. Sutured in place with a 2-0 silk suture. He tolerated it well and had an excellent response to the block with very little pain. I attest to the content of the Intraoperative Record and any orders documented therein. Any exceptions are noted below. JASKARAND
--- NOTE | 2016-08-11 07:26 | DIAGNOSTIC IMAGING REPORT ---
CHEST ONE VIEW PORTABLE CLINICAL HISTORY: s/p vats postoperative evaluation COMPARISON STUDY: 08/10/2016 FINDINGS: Slight improvement in aeration left hemithorax. Residual left apical pneumothorax unchanged from the prior date maximum pleural separation 2.8 cm. Right lung remains clear. IMPRESSION: Slight improvement in aeration left hemithorax. Unchanging left apical pneumothorax. Electronically signed by: Pop Villafana M.D. 08/11/2016 7:25 AM Dictated Date/Time: 08/11/2016 7:22 AM
[2016-08-11 07:29] VITALS: BP 117/66; PULSE 66; TEMP 36.6; O2SAT 98
[2016-08-11 07:40] VITALS: O2SAT 97
[2016-08-11] MEDS: LISINOPRIL 2.5 MG TAB PO SCH (09:00)
--- NOTE | 2016-08-11 11:09 | SURGERY PROGRESS NOTE ---
DATE: 08/11/2016 Mr. Gordon was seen today, one day after his surgery. He looks good. His chest x-ray looks good, except he still has an apical pneumothorax; it is small at less than 3 cm. He has a small air leak on suction, really does not have one on waterseal. I inspected his incisions and they are all clean. He had some drainage around his chest tube site and this greatly concerned him. He is on 2 liters of O2 with 97% saturation; I think we can get him off of that. We have stopped all of his IV fluids and mobilized him to get him up walking in the hallway today. His PleurX catheter did not drain much and I was quite happy with his x-ray today. We will see what his air leak does in the next few days. I had a long talk with Mr. Gordon. I explained that he has emphysematous lungs and they sometimes leak. We repaired everything we could see yesterday and he did not have an air leak at the conclusion of the case. There is a small one now. This has been a pattern for him. At any rate, I am happy with his x-ray. Hopefully, we will be able to get this air leak sealed.
[2016-08-11] MEDS: TIOTROPIUM BROMIDE 5 PUFF/90 MCG INH INH SCH (11:15)
[2016-08-11] MEDS: FLUTICASONE/SALMETEROL (ADVAIR) 500/50 INH 14 PUFF INH SCH (11:15)
[2016-08-11] MEDS: DOCUSATE SODIUM 100 MG CAP PO SCH ×2 (11:18→20:50)
[2016-08-11] MEDS: GABAPENTIN 100 MG CAP PO SCH ×3 (11:19→20:50)
[2016-08-11 12:00] VITALS: BP 115/67; PULSE 65; TEMP 36.7; O2SAT 96
[2016-08-11 14:55] VITALS: BP 111/69; PULSE 77; TEMP 36.6; O2SAT 94
[2016-08-11] MEDS ORDERED: CALCIUM CARBONATE 500 MG CHEWABLE PO PRN (18:00)
[2016-08-11] MEDS ORDERED: PANTOprazole SOD 40 MG TAB PO ONE (18:00)
[2016-08-11] MEDS ORDERED: NURSING VERBAL MED ORDER ONE (18:00)
[2016-08-11] MEDS: SIMVASTATIN 40 MG TAB PO SCH (20:50)
[2016-08-11 23:00] VITALS: BP 126/75; PULSE 67; TEMP 36.5; O2SAT 94
[2016-08-12] MEDS: MoRPHine SULFATE 2 MG/ML CARP IV PRN ×2 (00:31→09:28)
[2016-08-12] MEDS: ACETAMINOPHEN 325 MG TAB PO SCH ×2 (02:59→08:56)
[2016-08-12] MEDS: OXYCODONE HCL IR 5 MG TAB (IMMEDIATE RELEASE) PO PRN ×3 (07:11→21:03)
[2016-08-12 07:59] VITALS: BP 133/84; PULSE 58; TEMP 36.6; O2SAT 99
[2016-08-12 08:00] VITALS: O2SAT 99
[2016-08-12] MEDS: TIOTROPIUM BROMIDE 5 PUFF/90 MCG INH INH SCH (08:58)
[2016-08-12] MEDS: FLUTICASONE/SALMETEROL (ADVAIR) 500/50 INH 14 PUFF INH SCH (08:58)
[2016-08-12] MEDS: GABAPENTIN 100 MG CAP PO SCH (09:00)
[2016-08-12] MEDS: LISINOPRIL 2.5 MG TAB PO SCH (09:00)
[2016-08-12] MEDS: PANTOprazole SOD 40 MG TAB PO SCH (09:00)
[2016-08-12] MEDS: DOCUSATE SODIUM 100 MG CAP PO SCH ×2 (09:15→20:55)
[2016-08-12] MEDS: KETOROLAC TROMETHAMINE 30 MG/ML VIAL IV. SCH ×3 (11:36→23:35)
[2016-08-12] MEDS: POLYETHYLENE (MIRALAX) 17 GM PACK PO SCH (12:04)
--- NOTE | 2016-08-12 12:09 | SURGERY PROGRESS NOTE ---
DATE: 08/12/2016 Mr. Gordon was seen today. He is actually on room air with saturations of 99%. However, he sometimes feels still short of breath and he asked for oxygen. He is ambulating in the hallway. His dyspepsia was treated nicely with proton pump inhibitors and Tums. He is having more pain along the anterior aspect of his left chest. There is no erythema, no swelling. Noticed increasing subcutaneous emphysema. His air leak is definitely smaller than yesterday. He still has a small leak on suction with every breath, although it is minimal. He does not have an air leak on waterseal. We drained very little from his chest tube, his PleurX catheter drained very little also. This did hurt him though, so I feel like his lung is expanding. ASSESSMENT AND PLAN: Postop day #2 status post reexploration thoracoscopy with evacuation of pleural contents with decortication and control of air leak. I am going to adjust his pain medications by increasing his Neurontin from 100 to 300 and t.i.d. and then adding parenteral acetaminophen and Toradol.
[2016-08-12] MEDS: ACETAMINOPHEN IV 1,000 MG in EMPTY BAG 0 ML IV SCH ×2 (13:34→20:56)
[2016-08-12 15:47] VITALS: BP 117/73; PULSE 71; TEMP 36.4; O2SAT 94
[2016-08-12 16:00] VITALS: O2SAT 94
[2016-08-12] MEDS: SIMVASTATIN 40 MG TAB PO SCH (20:55)
[2016-08-12 23:06] VITALS: BP 107/66; PULSE 63; TEMP 36.6; O2SAT 94
[2016-08-13] MEDS: KETOROLAC TROMETHAMINE 30 MG/ML VIAL IV. SCH ×3 (05:45→17:42)
[2016-08-13] MEDS: ACETAMINOPHEN IV 1,000 MG in EMPTY BAG 0 ML IV SCH ×3 (05:45→22:08)
--- NOTE | 2016-08-13 07:50 | DIAGNOSTIC IMAGING REPORT ---
SINGLE VIEW CHEST CLINICAL HISTORY: Lobectomy. Follow-up pneumothorax. FINDINGS: An AP, portable, upright chest radiograph is compared to studies dated 08/11/16. Correlation is made with chest CT dated 06/27/2016. The cardiomediastinal silhouette is unremarkable. Emphysema and chronic interstitial thickening are similar to previous. There are postoperative changes from left upper lobe pulmonary resection. A left apical chest tube is unchanged in position. A small left apical pneumothorax has modestly decreased in size from 08/11/16, with approximately 2.3 cm of apical pleural separation. A small amount of pleural fluid is again noted at the left lung base with left basilar opacities. Linear atelectasis is present in the right lower lobe. The right lung otherwise appears clear. The skeletal structures are osteopenic. The bony thorax is grossly intact. Subcutaneous emphysema along the left chest wall as well as calcifications within the left chest wall are unchanged from previous. There are left axillary surgical clips. IMPRESSION: 1. A left apical chest tube is unchanged in position, and a left apical pneumothorax has modestly decreased in size from 08/11/2016. 2. Emphysema and postoperative changes from left upper lobe pulmonary resection. 3. Pleural fluid at the left lung base and left basilar opacities are unchanged. Electronically signed by: Venkat Warren M.D. 08/13/2016 7:49 AM Dictated Date/Time: 08/13/2016 7:45 AM
[2016-08-13 07:57] VITALS: BP 118/76; PULSE 58; TEMP 34.6; O2SAT 95
[2016-08-13 08:00] VITALS: O2SAT 95
[2016-08-13] MEDS: MoRPHine SULFATE 2 MG/ML CARP IV PRN (08:04)
[2016-08-13] MEDS: FLUTICASONE/SALMETEROL (ADVAIR) 500/50 INH 14 PUFF INH SCH (09:17)
[2016-08-13] MEDS: DOCUSATE SODIUM 100 MG CAP PO SCH ×2 (09:18→21:27)
[2016-08-13] MEDS: PANTOprazole SOD 40 MG TAB PO SCH (09:18)
[2016-08-13] MEDS: TIOTROPIUM BROMIDE 5 PUFF/90 MCG INH INH SCH (09:18)
[2016-08-13] MEDS: LISINOPRIL 2.5 MG TAB PO SCH (09:19)
[2016-08-13] MEDS: POLYETHYLENE (MIRALAX) 17 GM PACK PO SCH (09:19)
[2016-08-13 15:45] VITALS: BP 118/77; PULSE 70; TEMP 36.2; O2SAT 95
[2016-08-13] MEDS: OXYCODONE HCL IR 5 MG TAB (IMMEDIATE RELEASE) PO PRN (17:41)
[2016-08-13] MEDS: SIMVASTATIN 40 MG TAB PO SCH (21:27)
[2016-08-13 23:00] VITALS: BP 135/79; PULSE 53; TEMP 36.2; O2SAT 94
[2016-08-14] MEDS: ACETAMINOPHEN IV 1,000 MG in EMPTY BAG 0 ML IV SCH (05:16)
[2016-08-14] MEDS: OXYCODONE HCL IR 5 MG TAB (IMMEDIATE RELEASE) PO PRN ×4 (05:48→23:27)
[2016-08-14 07:20] VITALS: BP 111/72; PULSE 62; TEMP 36.3; O2SAT 95
[2016-08-14] MEDS: HYDROmorphone INJ 1 MG/ML SYR IV PRN ×2 (07:59→13:18)
--- NOTE | 2016-08-14 08:06 | DIAGNOSTIC IMAGING REPORT ---
CHEST ONE VIEW PORTABLE CLINICAL HISTORY: Pneumothorax. COMPARISON STUDY: Chest radiograph August 13, 2016. FINDINGS: Postsurgical findings within the left hemithorax are noted. 2 left chest tube are unchanged in position. There are skin johanne within left chest wall. There is a small amount of gas within left chest wall. A small left apical pneumothorax has decreased in size. Pleural separation measures 1.8 cm superiorly. Emphysema is noted. Hazy left lower lung opacity persists with a suspected small left pleural effusion. IMPRESSION: Small left apical pneumothorax, decreased in size since exam of August 13, 2016. Otherwise, unchanged appearance of the chest with 2 left-sided chest tubes remaining in place. Electronically signed by: Ismael Castillo M.D. 08/14/2016 8:04 AM Dictated Date/Time: 08/14/2016 8:01 AM
--- NOTE | 2016-08-14 08:07 | SURGERY PROGRESS NOTE ---
DATE: 08/13/2016 Mr. Gordon's pain was better. He has moved his bowels. His air leak is almost gone, although he has a small one on suction. He has been ambulating in the hallway. Incisions have some serous drainage but he has drained very little from his chest tube. We are going to continue daily drainage of his PleurX catheter. We will check a chest x-ray in the morning. I think he is close to being discharged with his chest tubes removed.
--- NOTE | 2016-08-14 08:15 | SURGERY PROGRESS NOTE ---
DATE: 08/14/2016 SUBJECTIVE: Mr. Gordon is seen today. His x-ray looks very good. I really do not see a pneumothorax. He really does not have an air leak. He is draining very little from his chest tubes. His incisions are clean; I inspected them closely. The only problem is he is complaining of terrible pain in his anterior chest which is sharp. This is anteriorly where he has been having pain. It may be from his chest tube. His vital signs have been stable. I certainly do not think we are dealing with any type of cardiac issue. We are going to give him some Dilaudid for this pain and check an EKG. Hopefully we will be able to get this chest tube out and get him home tomorrow.
[2016-08-14] MEDS: FLUTICASONE/SALMETEROL (ADVAIR) 500/50 INH 14 PUFF INH SCH (08:50)
[2016-08-14] MEDS: DOCUSATE SODIUM 100 MG CAP PO SCH ×2 (08:51→21:27)
[2016-08-14] MEDS: LISINOPRIL 2.5 MG TAB PO SCH (08:51)
[2016-08-14] MEDS: PANTOprazole SOD 40 MG TAB PO SCH (08:52)
[2016-08-14] MEDS: POLYETHYLENE (MIRALAX) 17 GM PACK PO SCH (08:52)
[2016-08-14] MEDS: TIOTROPIUM BROMIDE 5 PUFF/90 MCG INH INH SCH (09:23)
[2016-08-14 13:30] VITALS: BP 137/69; PULSE 85; O2SAT 97
[2016-08-14] MEDS ORDERED: KETOROLAC TROMETHAMINE 30 MG/ML VIAL IV PRN (14:00)
[2016-08-14] MEDS ORDERED: KETOROLAC TROMETHAMINE 30 MG/ML VIAL IV ONE (14:00)
[2016-08-14] MEDS ORDERED: HYDROmorphone INJ 1 MG/ML SYR IV STA (14:10)
[2016-08-14 14:28] LABS: BASO % 0.3 %; BASO ABS # 0.02 K/uL (0-0.2); EOS % 5.4 %; HEMATOCRIT 31.5 % (42-52); IG% 0.6 %; LYMPH ABS # 1.49 K/uL (1.2-3.4); MEAN CELL VOLUME 85.8 fL (80-100); MEAN CORPUSCULAR HEMOGLOBIN 29.2 pg (25-34); MEAN PLATELET VOLUME 7.8 fL (7.4-10.4); MONO % 11.6 %; NEUT % 63.1 %; PLATELET COUNT 306 K/uL (130-400); RED BLOOD COUNT 3.67 M/uL (4.7-6.1); WHITE BLOOD COUNT 7.85 K/uL (4.8-10.8)
[2016-08-14 14:46] LABS: COMPLETE YES
[2016-08-14 14:50] LABS: CKMB/CK RATIO 1.3 (0-3.0)
[2016-08-14 14:52] LABS: BUN/CREATININE RATIO 14.4 (10-20); CALCIUM 8.4 mg/dl (8.5-10.1); MAGNESIUM 2.1 mg/dl (1.8-2.4)
--- NOTE | 2016-08-14 15:16 | CARDIOLOGY CONSULTATION ---
DATE OF CONSULTATION: 08/14/2016 DATE OF CONSULTATION: 08/14/2016. PERTINENT HISTORY: Mr. Gordon is a 56-year-old white male admitted on the of this month for a reoperation. He has developed chest pain syndrome. Therefore, this consultation was ordered. The patient's cardiac history began in early July when he was diagnosed with a left upper lobe adenocarcinoma. He underwent thorascopic left upper lobectomy. The patient continued to have an air leak following surgery and eventually only had closure of that air leak thorascopic on 08/01/2016. He was discharged to home, however, had a persistent air leak and therefore was readmitted on 08/09/2016. On 08/10/2016, he underwent a reexploratory thoracoscopy to close the air leak and perform a decortication. Since surgery, the patient has experienced a sharp left-sided anterior chest discomfort. This is unchanged by position or breathing. There are no associated symptoms of shortness of breath, nausea, vomiting, diaphoresis, or radiation of the discomfort. The patient has never had a myocardial infarction. He was diagnosed with alcoholic cardiomyopathy approximately 2.5 years ago according to his report. His ejection fraction normalized with alcohol abstinence. The patient has never experienced exertional angina pectoris. He further denies syncope, presyncope, PND, orthopnea, palpitations, lower extremity deep, and claudication. Currently, the patient is resting in bed. He continues left-sided anterior chest discomfort. PAST MEDICAL HISTORY: 1. Hypertension. 2. History of alcoholic cardiomyopathy -- resolved. 3. Chronic obstructive pulmonary disease. 4. Adenocarcinoma of the left upper lung. 5. Status post left PATS left upper lobectomy -- 07/18/2016. 6. Right exploratory thoracoscopy and decortication 08/10/2016. 7. History of jaw surgery. MEDICATIONS: 1. Zestril 2.5 mg daily. 2. Zocor 40 mg at bedtime. 3. Protonix 40 mg per day. 4. Spiriva 1 puff q.a.m. 5. Advair 500/50 one puff q.a.m. 6. Neurontin 300 mg t.i.d. ALLERGIES: None. SOCIAL HISTORY: The patient is and retired. Quit tobacco use back in July. Quit alcohol use 2 packs years ago. FAMILY HISTORY: No early coronary artery disease. REVIEW OF SYSTEMS: Negative except for that described above. PHYSICAL EXAMINATION: GENERAL: This is a well-developed, well-nourished white male in no acute distress. VITAL SIGNS: Blood pressure is 110/72 with a regular pulse of 62. Respiratory rate is 18. The patient is afebrile at 36.3 degrees Celsius. Saturations 95% on room air. NECK: Supple with full carotid upstrokes. There are no carotid bruits. Jugular venous pressure is flat at 90 degrees. There is no thyromegaly. CARDIOVASCULAR EXAMINATION: Reveals a regular rhythm with normal S1 and S2. Heart sounds are distant. No obvious murmurs. No S3 or S4. LUNGS: Clear without rales, rhonchi, or wheezes. Breath sounds diminished at the left base. CHEST: Reveals a catheter in the left axillary region. ABDOMEN: Soft, nontender without bruits. EXTREMITIES: Reveal intact radial artery pulses bilaterally. There is no peripheral edema. LABORATORY DATA: CBC notes a hemoglobin of 10.1, hematocrit 29.9, white count 7.6, platelet count 328,000. Electrolytes note a sodium of 139, potassium 3.9, chloride 107, bicarb 21, BUN 13, creatinine 1.0, glucose 117. INR is 1.0. Chest x-ray notes a small left apical pneumothorax and evidence of left-sided chest tube. EKG notes sinus rhythm with left anterior hemiblock and an old inferior myocardial infarction cannot be excluded. This is unchanged compared with tracing of 07/18/2016. IMPRESSION: Mr. Gordon is experiencing sharp left-sided anterior chest pain since his surgery on the . There is a chest tube located in that area. 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 EKG remains unchanged. Cardiac enzymes are pending. PLAN: 1. Agree with trending myocardial enzymes. 2. Continue usual antihypertensive and hyperlipidemic medications. 3. Further recommendations depending on his clinical course. SEVERO
[2016-08-14 15:43] VITALS: BP 103/67; PULSE 63; TEMP 36.6; O2SAT 95
[2016-08-14] MEDS: SIMVASTATIN 40 MG TAB PO SCH (21:27)
[2016-08-14 23:14] VITALS: BP 126/89; PULSE 77; TEMP 36.4; O2SAT 93
--- NOTE | 2016-08-14 23:33 | SURGERY PROGRESS NOTE ---
DATE: 08/14/2016 SUBJECTIVE: Mr. Gordon was seen today on 08/14/2016. I saw him this afternoon because the patient had a terrible pain in his left chest. On EKG, really was not concerned about this. Dr. Dann Lee came by and looked at and Dr. Lee felt this was probably post-surgical and I agree with him. I did check labs on him; however, his white count is normal at 7115, hemoglobin stable at 10.7. His cardiac enzymes show no evidence of any myocardial ischemia or damage. I am hopeful we can get his chest tube out tomorrow and get him home.
[2016-08-15] MEDS: OXYCODONE HCL IR 5 MG TAB (IMMEDIATE RELEASE) PO PRN (05:40)
[2016-08-15 07:16] VITALS: BP 123/79; PULSE 55; TEMP 36.4; O2SAT 94
--- NOTE | 2016-08-15 08:32 | DIAGNOSTIC IMAGING REPORT ---
SINGLE VIEW CHEST CLINICAL HISTORY: Lobectomy. Follow-up pneumothorax. FINDINGS: An AP, portable, upright chest radiograph is compared to studies dated 08/14/16. Correlation is made with chest CT dated 06/27/2016. The examination is degraded by portable technique and patient rotation. The cardiomediastinal silhouette is unremarkable. Emphysema and chronic interstitial thickening are similar to previous. There are postoperative changes from left upper lobe pulmonary resection. 2 left-sided chest tubes are unchanged in position. A small left apical pneumothorax has not significantly changed from yesterday. There is approximately 1.8 cm of apical pleural separation. A small amount of pleural fluid is again noted at the left lung base with left basilar opacities. The right lung appears clear. The skeletal structures are osteopenic. The bony thorax is grossly intact. Calcifications within the left chest wall are unchanged from previous. There are left axillary surgical clips. IMPRESSION: 1. 2 left-sided chest tubes are unchanged in position, and a left apical pneumothorax has not significantly changed from yesterday. 2. Emphysema and postoperative changes from left upper lobe pulmonary resection. 3. Pleural fluid at the left lung base and left basilar opacities are unchanged. Electronically signed by: Venkat Warren M.D. 08/15/2016 8:31 AM Dictated Date/Time: 08/15/2016 8:28 AM
[2016-08-15] MEDS ORDERED: GABAPENTIN 300 MG CAP PO SCH (09:00)
[2016-08-15] MEDS: TIOTROPIUM BROMIDE 5 PUFF/90 MCG INH INH SCH (09:25)
[2016-08-15] MEDS: FLUTICASONE/SALMETEROL (ADVAIR) 500/50 INH 14 PUFF INH SCH (09:25)
[2016-08-15] MEDS: PANTOprazole SOD 40 MG TAB PO SCH (09:26)
[2016-08-15] MEDS: LISINOPRIL 2.5 MG TAB PO SCH (09:26)
[2016-08-15] MEDS: POLYETHYLENE (MIRALAX) 17 GM PACK PO SCH (09:27)
[2016-08-15] MEDS: DOCUSATE SODIUM 100 MG CAP PO SCH (09:27)
[2016-08-15] MEDS ORDERED: OXYC-57 PO (10:24)
[2016-08-15] MEDS ORDERED: CLC100 PO (10:24)
[2016-08-15] MEDS ORDERED: NRN300 PO (10:24)
[2016-08-15] MEDS: HYDROmorphone INJ 1 MG/ML SYR IV PRN (10:27)
--- NOTE | 2016-08-15 10:27 | Discharge Instructions ---
Discharge Instructions Admission Reason for Admission: Pneumothorax Chest Tube L Side Discharge Discharge Diagnosis / Problem: Pneumothorax Discharge Goals Goal(s): Decrease discomfort, Improve function Activity Recommendations Activity Limitations: as noted below . Instructions / Follow-Up Instructions / Follow-Up 1. You may remove dressing in 3 days and then shower. No tub baths. 2. Do not fly until cleared to do so by Dr. Pacheco. 3. Office appointment with Dr. Pacheco in 1 week. Office will call you with date and time of appointment. You will need a chest x-ray prior to appointment. Current Hospital Diet Patient's current hospital diet: Regular Diet Discharge Diet Recommended Diet: Regular OB Diet Procedures Procedures Performed: Left video assisted thoracoscopy, and repair of air leak Pending Studies Studies pending at discharge: no Medical Emergencies . Who to Call and When: Medical Emergencies: If at any time you feel your situation is an emergency, please call 911 immediately. . Non-Emergent Contact Non-Emergency issues call your: Surgeon Call Non-Emergent contact if: you have a fever, your pain is not controlled, your pain is worsening, wound has increased drainage . "Provider Documentation" section prepared by Cliff Crabtree. VTE Core Measure Inpt VTE Proph given/why not?: SCD's
--- NOTE | 2016-08-15 10:31 | CARDIOLOGY PROGRESS NOTE ---
DATE: 08/15/2016 DATE: 08/15/2016. SUBJECTIVE: Mr. Gordon is seated at the bedside without complaints of chest pain or dyspnea. He is anxious for hospital discharge. OBJECTIVE: VITAL SIGNS: Blood pressure is 123/80 with a regular pulse of 55. Respiratory rate is 16. The patient is afebrile at 36.4 degrees Celsius. Saturations 94% on room air. NECK: Supple with full carotid upstrokes. There are no carotid bruits. Jugular venous pressure is flat at 90 degrees. There is no thyromegaly. CARDIOVASCULAR EXAMINATION: Reveals a regular rhythm with normal S1 and S2. Heart sounds are distant. No obvious murmurs. LUNGS: Clear without rales, rhonchi, or wheezes. CHEST: Reveals a catheter in the left axillary region. ABDOMEN: Soft without bruits. EXTREMITIES: Reveal intact radial artery pulses bilaterally. There is no peripheral edema. DATA: Troponin I level checked yesterday afternoon was undetectable at less than 0.015. CK was 45 with an MB fraction of 0.6. IMPRESSION AND PLAN: 1. Chest pain syndrome. Not cardiac in origin. Likely related to the indwelling pleural catheter. No further cardiac evaluation necessary. 2. Hypertension -- controlled. 3. History of alcoholic cardiomyopathy -- resolved. 4. Chronic obstructive pulmonary disease. 5. Left upper lung adenocarcinoma -- status post VATS July 2016. Had a decortication in early August. 6. Disposition -- stable for hospital discharge from a cardiac perspective.
--- NOTE | 2016-08-15 10:54 | DIAGNOSTIC IMAGING REPORT ---
CHEST ONE VIEW PORTABLE CLINICAL HISTORY: Chest tube removal. COMPARISON STUDY: Chest radiograph August 15, 2016 at 7:11 AM. FINDINGS: The left chest tube has been removed. Emphysema is noted. Post surgical findings with the left hemithorax are present. A small left apical pneumothorax has decreased in size. The pleural line is difficult to visualize on this exam. There is hazy left lower lung opacity. There is no evidence for pulmonary edema. IMPRESSION: Small left apical pneumothorax status post chest tube removal. The size of the pneumothorax appears diminished since prior exam. Electronically signed by: Ismael Castillo M.D. 08/15/2016 10:53 AM Dictated Date/Time: 08/15/2016 10:51 AM
[2016-08-15 11:04] VITALS: BP 123/79; PULSE 55; TEMP 36.4; O2SAT 94
--- NOTE | 2016-08-15 22:15 | DISCHARGE SUMMARY ---
DISCHARGE DIAGNOSES: 1. Persistent air leak status post thoracoscopic left upper lobectomy. 2. Emphysema. 3. History of cigarette smoking. HOSPITAL COURSE: Mr. Gordon is a 56-year-old male who has a hypermetabolic mass in the left upper lobe, and on 07/18/2016, I did an uncomplicated thoracoscopic left upper lobectomy. He was in the hospital about 2 weeks with an air leak, it was not very large, so rather than returning to the OR, I sent him home with a Heimlich valve. Unfortunately, he came back in complaining of more pain and drainage, and I took him back to the operating room on 08/10/2016. I found a very small air leak which was in the emphysematous part of the lung and I meticulously oversewed this. He did well with this, air leak was much smaller. His air leak resolved on postop day 4. X-ray looked much better and I finally removed his chest tube on postop day 5 and he had no evidence of pneumothorax. He felt much better. I am quite happy with his progress. I sent him home today, 08/15/2016. I will see him back in the office in 1 week to remove the clips from his wounds. He is much improved.
== END 2016-08-15 13:14 | disposition home health service (06) | DRG 164 ==
LOC: C.MSN 15:08
PROVIDERS: ADMIT Surgery; ATTEND Surgery
PROC: 0BQL4ZZ Repair Left Lung, Percutaneous Endoscopic Approach (ICD-10-PCS; 2016-08-10)
PROC: 0BNJ8ZZ Release Left Lower Lung Lobe, Via Natural or Artificial Opening Endoscopic (ICD-10-PCS; 2016-08-10)
PROC: 0B9P4ZZ Drainage of Left Pleura, Percutaneous Endoscopic Approach (ICD-10-PCS; principal; 2016-08-10 15:15)
DX: J95.812 Postprocedural air leak (principal); C34.90 Malignant neoplasm of unspecified part of unspecified bronchus or lung; J93.9 Pneumothorax, unspecified; Y83.8 Other surgical procedures as the cause of abnormal reaction of the patient, or of later complication, without mention of misadventure at the time of the procedure; I10 Essential (primary) hypertension; Z87.891 Personal history of nicotine dependence; J43.9 Emphysema, unspecified

== ENCOUNTER → 2016-08-09 | Outpatient (CLI) | payer OTHER ==
[~2016-08-09] MED LIST changes: +CLC100 PO; +DOCU-94 PO; -FENTANYL CITRATE INJ 50 MCG/1 ML 2 ML VIAL ONE; -LACTATED RINGER'S 1000ML 1,000 ML IV SCH; -LIDOCAINE HCL 2% 2 ML VIAL (20MG/ML) ONE; -MIDAZOLAM HCL 1 MG/ML 2ML VIAL ONE; +NRN300 PO; -ONDANSETRON INJ 2 MG/ML 2 ML VIAL ONE; +OXYC-57 PO; -PROPOFOL IV EMULSION 10 MG/ML 20 ML VIAL IV ONE; -ROCURONIUM BROMIDE 10 MG/ML 5 ML VIAL ONE
--- NOTE | 2016-08-09 12:45 | DIAGNOSTIC IMAGING REPORT ---
TWO VIEW CHEST CLINICAL HISTORY: Lobectomy. Follow-up pneumothorax. FINDINGS: PA and lateral chest radiographs are compared to studies dated 08/02/2016. Correlation is made with chest CT dated 06/27/2016. The cardiomediastinal silhouette is unremarkable. Emphysema and chronic interstitial thickening are similar to previous. There are postoperative changes from left upper lobe pulmonary resection. A left apical chest tube is unchanged in position. A small to moderate left apical pneumothorax has increased in size from 08/02/2016, with approximate 4.5 cm of apical pleural separation. A small amount of pleural fluid is again noted at the left lung base with left basilar opacities. The right lung appears clear. The skeletal structures are osteopenic. The bony thorax is grossly intact. Subcutaneous emphysema along the left chest wall as well as calcifications within the left chest wall are unchanged from previous. There are left axillary surgical clips. IMPRESSION: 1. A left apical chest tube is unchanged in position, and a small to moderate left apical pneumothorax has increased in size from 08/02/2016. 2. Emphysema and postoperative changes from left upper lobe pulmonary resection. 3. Pleural fluid the left lung base and left basilar opacities are unchanged. Electronically signed by: Venkat Warren M.D. 08/09/2016 12:43 PM Dictated Date/Time: 08/09/2016 12:41 PM
== END | disposition home or self-care (01) ==
LOC: C.RAD 12:03
PROVIDERS: ATTEND Surgery
DX: R91.1 Solitary pulmonary nodule (principal); J93.9 Pneumothorax, unspecified; J43.9 Emphysema, unspecified

== ENCOUNTER → 2016-08-23 | Outpatient (CLI) | payer OTHER ==
[~2016-08-23] MED LIST changes: +CLC100 PO; +NRN300 PO
--- NOTE | 2016-08-23 11:10 | DIAGNOSTIC IMAGING REPORT ---
TWO VIEW CHEST CLINICAL HISTORY: Lobectomy. Follow-up pneumothorax. FINDINGS: PA and lateral chest radiographs are compared to studies dated 08/15/2016. Correlation is made with chest CT dated 08/09/2016. The PA view is degraded by patient rotation. The cardiomediastinal silhouette is unremarkable. Emphysema and chronic interstitial thickening are similar to previous. There are postoperative changes from left upper lobe pulmonary resection. Suture material projects over the left apex. A loculated left-sided pneumothorax is likely unchanged. Trace pleural fluid is seen at the left lung base. There is no airspace consolidation typical for pneumonia. The right lung appears clear. The skeletal structures are osteopenic. The bony thorax is grossly intact. Surgical clips and calcifications are noted within the left chest wall. There are left axillary surgical clips. IMPRESSION: 1. Suspect a persistent loculated left-sided pneumothorax. 2. Emphysema and postoperative changes from left upper lobe pulmonary resection are again noted. 3. Pleural fluid at the left lung base is unchanged. Electronically signed by: Venkat Warren M.D. 08/23/2016 11:09 AM Dictated Date/Time: 08/23/2016 11:06 AM
== END | disposition home or self-care (01) ==
LOC: C.RAD 10:13
PROVIDERS: ATTEND Surgery
DX: R91.1 Solitary pulmonary nodule (principal); J43.9 Emphysema, unspecified

== ENCOUNTER → 2016-12-04 | Outpatient (CLI) | payer OTHER ==
--- NOTE | 2016-12-04 11:02 | DIAGNOSTIC IMAGING REPORT ---
CHEST 2 VIEWS ROUTINE CLINICAL HISTORY: Left upper lobectomy COMPARISON STUDY: 08/23/2016 FINDINGS: Postsurgical changes are present on the left. There is no acute parenchymal consolidation. There is no failure. There are no pleural effusions. The left lung appears hyperlucent. Underlying emphysema is suspected.[ IMPRESSION: Postsurgical change. No acute findings. Electronically signed by: Yosvany Pedroza M.D. 12/04/2016 11:00 AM Dictated Date/Time: 12/04/2016 10:59 AM
== END ==
LOC: C.RAD 10:39
PROVIDERS: ATTEND Surgery
DX: R91.1 Solitary pulmonary nodule (principal)